=== PATIENT | female | born 1960 | race Caucasian/White ===

== ENCOUNTER 2020-07-31 16:22 | Outpatient (REF) | payer OTHER, SELFPAY ==
--- NOTE | 2020-07-31 | MM_ITS ---
EXAMINATION: MM SCREENING DIGITAL BREAST TOMOSYNTHESIS, BILATERAL CLINICAL INFORMATION: Screening. Asymptomatic. The lifetime risk of breast cancer based on the Tyrer-Cuzick Model is 8%. COMPARISON: Mammography: 12/26/2018, 12/19/2017, 06/07/2017, 11/29/2016 TECHNIQUE: Digital breast tomosynthesis is performed in both the craniocaudal and mediolateral oblique views along with computer-aided detection (CAD). Synthesized 2D images are generated from the tomosynthesis. FINDINGS: There are scattered areas of fibroglandular density (ACR BI-RADS breast composition Category b). There are no significant masses, abnormal calcifications, or other abnormalities. Parenchymal pattern is similar to prior studies. No developing density. No significant changes. MM/MM tomosynthesis screening BI IMPRESSION: No mammographic evidence of malignancy. ASSESSMENT: BI-RADS 1: Negative RECOMMENDATION: Routine annual mammography screening. This patient's information was entered into a reminder system with a target due date for their next mammogram.
== END 2020-07-31 16:23 | disposition home or self-care (01) ==
LOC: HO.MAMMO 16:22
PROVIDERS: PCP Internal Medicine; Visit Provider Internal Medicine
DX: Z12.31 Encounter for screening mammogram for malignant neoplasm of breast (principal)
CPT/HCPCS: 77063; 77067

== ENCOUNTER 2021-08-13 12:03 | Outpatient (REF) | payer OTHER, SELFPAY ==
--- NOTE | ~2021-08-13 | MM_ITS ---
EXAMINATION: MM SCREENING DIGITAL BREAST TOMOSYNTHESIS, BILATERAL CLINICAL INFORMATION: Screening. Asymptomatic. The lifetime risk of breast cancer based on the Tyrer-Cuzick Model is 5%. COMPARISON: Mammography: 07/31/2020, 12/26/2018, 12/19/2017 TECHNIQUE: Digital breast tomosynthesis is performed in both the craniocaudal and mediolateral oblique views along with computer-aided detection (CAD). Synthesized 2D images are generated from the tomosynthesis. FINDINGS: There are scattered areas of fibroglandular density (ACR BI-RADS breast composition Category b). There are no significant masses, abnormal calcifications, or other abnormalities. MM/MM tomosynthesis screening BI IMPRESSION: No mammographic evidence of malignancy. ASSESSMENT: BI-RADS 1: Negative RECOMMENDATION: Routine annual mammography screening. This patient's information was entered into a reminder system with a target due date for their next mammogram.
== END 2021-08-13 12:04 | disposition home or self-care (01) ==
LOC: HO.MAMMO 12:03
PROVIDERS: Visit Provider Internal Medicine
DX: Z12.31 Encounter for screening mammogram for malignant neoplasm of breast (principal)
CPT/HCPCS: 77063; 77067

== ENCOUNTER 2022-08-17 14:40 | Outpatient (REF) | payer OTHER, SELFPAY ==
--- NOTE | ~2022-08-17 | MM_ITS ---
EXAMINATION: MM SCREENING DIGITAL BREAST TOMOSYNTHESIS, BILATERAL CLINICAL INFORMATION: Screening. Asymptomatic. The lifetime risk of breast cancer based on the Tyrer-Cuzick Model is 7%. COMPARISON: Mammography: 08/13/2021, 07/31/2020, 12/26/2018 TECHNIQUE: Digital breast tomosynthesis is performed in both the craniocaudal and mediolateral oblique views along with computer-aided detection (CAD). Synthesized 2D images are generated from the tomosynthesis. FINDINGS: There are scattered areas of fibroglandular density (ACR BI-RADS breast composition Category b). Parenchymal pattern is similar to prior studies. There is no significant mass or architectural abnormality or developing density. Small smooth nodular asymmetry central left breast on MLO tomography is similar to prior exams. Neither breast shows abnormal calcifications. The axilla and skin contours are unremarkable. No significant changes. MM/MM tomosynthesis screening BI IMPRESSION: No mammographic evidence of malignancy. ASSESSMENT: BI-RADS 2: Benign RECOMMENDATION: Routine annual mammography screening. This patient's information was entered into a reminder system with a target due date for their next mammogram.
== END 2022-08-17 14:41 | disposition home or self-care (01) ==
LOC: HO.MAMMO 14:40
PROVIDERS: Visit Provider Internal Medicine
DX: Z12.31 Encounter for screening mammogram for malignant neoplasm of breast (principal)
CPT/HCPCS: 77063; 77067

== ENCOUNTER 2023-08-23 14:58 | Outpatient (REF) | payer OTHER, SELFPAY | END 2023-08-23 14:59 | disposition home or self-care (01) | LOC: HO.MAMMO 14:58 | PROVIDERS: PCP Student in an Organized Health Care Education/Training Program; Visit Provider Internal Medicine | DX: Z12.31 Encounter for screening mammogram for malignant neoplasm of breast (principal) | CPT/HCPCS: 77063; 77067 ==

== ENCOUNTER → 2023-08-23 15:15 | Outpatient (BNV) | payer OTHER, SELFPAY | PROVIDERS: PCP Student in an Organized Health Care Education/Training Program; Visit Provider Radiology Diagnostic Radiology | DX: Z12.31 Encounter for screening mammogram for malignant neoplasm of breast (principal) | CPT/HCPCS: 77063; 77067 ==

== ENCOUNTER 2024-09-23 13:31 | Outpatient (REF) | payer OTHER, SELFPAY ==
--- OUTSIDE RECORDS SUMMARY | 2024-09-23 16:25 | XMS_ITS | Data Portability ---
Author Organization [facility], Main Office Address [address] [place] [address] Care Team Providers Care Bar Tender Name Role Phone DESILEANYA, DOMINGO Roast Master ATUL DORADO Garage Manager [facility] General Surgeon DEYSI MENDEZ Tile Molder [phone] DAVID ENRIQUEZ Neurologist ELENA OLIVARES Referring Provider [phone] [facility] (KARI KIM) Orthopedic Surgeon FRANCISCA OCHOA Log Buncher NELSY BUSTAMANTE Roast Master [phone] SUHAS PRICE Primary Care Provider Assessment Encounter Date Assessment Date Assessment LastModified by Organization Details LastModified Time 01/04/2023 01/04/2023 This service was provided using telemedicine. Patient consented to video & audio visit Patient was located in the [facility]. Provider was located in the office. No other persons participated in the telemedicine visit except for the patient unless otherwise indicated here. {{}} Total time of visit was 15 minutes. [email or web address] Not available 01/04/2023 15:44:10 02/22/2024 02/22/2024 Discussed with patient the signs/symptoms warranted for a return to office visit and/or an ER visit. Patient understood and agreed with the plan. Not available 02/22/2024 14:33:21 Plan of Treatment Reminders Order Date Submit Date Provider Last Modified By Organization Details Last Modified Time Details Appointments PE EST 03/27/ 2025 01:45P M SUHAS PRICE MD Not available Not available Not available Lab BMP, serum or plasma 2022 023 [facility], [address], [address], [place], [address], 12/02/2022 17:05:54 CBC w/ auto diff 2022 023 [facility], [address], [address], [place], [address], 12/02/2022 17:04:06 ALT (shanelle vela), serum or plasma 2023 024 [facility], [address], [place], [address], 02/04/2024 08:06:52 lipid panel, serum 2023 024 [email or web address] [facility], [address], [place], [address], 11/28/2023 10:50:26 TSH + free T4, serum 2023 024 [facility], [address], [place], [address], 02/04/2024 08:06:48 CBC w/ auto diff 2023 024 [facility], [address], [place], [address], 02/04/2024 08:06:50 BMP, serum or plasma 2023 024 [facility], [address], [place], [address], 02/04/2024 08:06:50 HIV 1 + 2 RNA panel, NGOC+pr obe, serum or plasma 2023 024 [facility], [address], [place], [address], 02/04/2024 08:06:52 BMP, serum or plasma 2023 024 [facility], [address] [facility], [facility] [address], [place], [address], 02/13/2024 06:08:26 CBC w/ auto diff 2023 024 [facility], [address], [facility] [address], [place], [address], 02/13/2024 06:08:26 Referral None record ed. Procedures None record ed. Surgeries None record ed. Imaging CT, abdome n + pelvis , w/ contra st - RLQ pain, rule out divert iculit is, coliti s, mass/ with iv and oral contra st [id number] [facility], [address] [place], [address], 12/14/2022 14:05:57 CT, abdome n + pelvis , w/o contra st 2023 024 [facility] [place], [facility], [facility] [address], [place], [address], 02/27/2024 08:58:16 US, abdome n - right sided abdomi nal pain. CT scan reveal s kidney stones in the right kidney - but urolog y determ ined not the cause of right abdomi nal pain [email or web address] [place] [address] (Radiology), [address] [place], [address], 02/26/2024 11:35:40 XR, hip, unilat eral, 2 or 3 view - right hip/ab domina l pain [address] [facility], [address] [facility], [place], [address], 02/22/2024 15:31:07 Medication Orders None record ed. Patient TargetsNo targets recorded. Patient Instructions Encounter Date Encounter Id Patient Instructions Last Modified By Organization Details Last Modified Time 11/20/2023 [id number] medical record request* [email or web address] Not available 11/20/2023 15:36:34 constipation: care instructions Not available 11/20/2023 13:34:37 HIV testing: car e instructions Not available 11/20/2023 13:23:15 02/12/2024 [id number] Follow up as needed. [email or web address] Not available 02/12/2024 10:01:07 Reason for Referral None Reported. Results Created Date Observation Date Name Description Value Unit Range Abnormal Flag Note LastModifiedBy Organization Detail LastModifiedTime 12/03/1912/02/2022 COMPL ETE CBC WITH DIFF WBC 6.5 K/mm3 (4.0-1 1.0) Not Available [facility] [address] [place], [address], 12/02/2022 17:04:05 12/03/19 23 12/02/2022 COMPL ETE CBC WITH DIFF RBC 4.63 M/mm3 (4.20- 5.40) Not Available [facility] [address] [place], [address], 12/02/2022 17:04:05 12/03/19 23 12/02/2022 COMPL ETE CBC WITH DIFF HGB 13.9 gm/dL (11.7- 15.5) Not Available [facility] [address] [place], [address], 12/02/2022 17:04:05 12/03/19 23 12/02/2022 COMPL ETE CBC WITH DIFF HCT 42.7 % (35.7- 45.8) Not Available [facility] [address] [place], [address], 12/02/2022 17:04:05 12/03/1912/02/2022 COMPL ETE CBC WITH DIFF MCV 92.2 fL (80.0- 100.0) Not Available [facility] [address] [place], [address], 12/02/2022 17:04:05 12/03/19 23 12/02/2022 COMPL ETE CBC WITH DIFF MCH 30.0 pg (27.0- 34.0) Not Available [facility] [address] [place], [address], 12/02/2022 17:04:05 12/03/19 23 12/02/2022 COMPL ETE CBC WITH DIFF MCHC 32.6 g/dL (33.0- 37.0) low Not Available [facility] [address] [place], [address], 12/02/2022 17:04:05 12/03/19 23 12/02/2022 COMPL ETE CBC WITH DIFF plt 297 K/mm3 (150-4 60) Not Available [facility] [address] [place], [address], 12/02/2022 17:04:05 12/03/19 23 12/02/2022 COMPL ETE CBC WITH DIFF RDW-SD 44.5 fL (<47.0 ) Not Available [facility] [address] [place], [address], 12/02/2022 17:04:05 12/03/19 23 12/02/2022 COMPL ETE CBC WITH DIFF MPV 9.6 fL (9.4-1 2.4) Not Available [facility] [address] [place], [address], 12/02/2022 17:04:05 12/03/19 23 12/02/2022 COMPL ETE CBC WITH DIFF automated NRBC 0.0 #/100 _WBC' s Not Available [facility] [address] [place], [address], 12/02/2022 17:04:05 12/03/19 23 12/02/2022 COMPL ETE CBC WITH DIFF abs. NRBC 0.0 K/mm3 Not Available [facility] [address] [place], [address], 12/02/2022 17:04:05 12/03/19 23 12/02/2022 COMPL ETE CBC WITH DIFF neut # 3.8 K/mm3 (1.3-7 .0) Not Available [facility] [address] [place], [address], 12/02/2022 17:04:05 12/03/19 23 12/02/2022 COMPL ETE CBC WITH DIFF lymph # 2.0 K/mm3 (0.8-3 .1) Not Available [facility] [address] [place], [address], 12/02/2022 17:04:05 12/03/19 23 12/02/2022 COMPL ETE CBC WITH DIFF mono# 0.4 K/mm3 (0.4-0 .9) Not Available [facility] [address] [place], [address], 12/02/2022 17:04:05 12/03/19 23 12/02/2022 COMPL ETE CBC WITH DIFF eo # 0.2 K/mm3 (0.0-0 .4) Not Available [facility] [address] [place], [address], 12/02/2022 17:04:05 12/03/19 23 12/02/2022 COMPL ETE CBC WITH DIFF baso # 0.1 K/mm3 (0.0-0 .1) Not Available [facility] [address] [place], [address], 12/02/2022 17:04:05 12/03/19 23 12/02/2022 COMPL ETE CBC WITH DIFF abs. imm gran 0.0 K/mm3 Not Available [facility] [address] [place], [address], 12/02/2022 17:04:05 12/03/19 23 12/02/2022 COMPL ETE CBC WITH DIFF neut 58.4 % (44-76 ) Not Available [facility] [address] [place], [address], 12/02/2022 17:04:05 12/03/19 23 12/02/2022 COMPL ETE CBC WITH DIFF lymph 31.3 % (15-43 ) Not Available [facility] [address] [place], [address], 12/02/2022 17:04:05 12/03/19 23 12/02/2022 COMPL ETE CBC WITH DIFF monocyte 6.3 % (4.5-1 0.5) Not Available [facility] [address] [place], [address], 12/02/2022 17:04:05 12/03/19 23 12/02/2022 COMPL ETE CBC WITH DIFF eo 2.6 % (0-6) Not Available [facility] [address] [place], [address], 12/02/2022 17:04:05 12/03/19 23 12/02/2022 COMPL ETE CBC WITH DIFF baso 1.1 % (0-2) Not Available [facility] [address] [place], [address], 12/02/2022 17:04:05 12/03/19 23 12/02/2022 COMPL ETE CBC WITH DIFF imm gran 0.3 % Not Available [facility] [address] [place], [address], 12/02/2022 17:04:05 12/03/19 23 12/02/2022 BASIC METAB OLIC PANEL glucose 86 mg/dL (70-99 ) Not Available [facility] [address] [place], [address], 12/02/2022 17:05:54 12/03/19 23 12/02/2022 BASIC METAB OLIC PANEL BUN 9 mg/dL (8-23) Not Available [facility] [address] [place], [address], 12/02/2022 17:05:54 12/03/19 23 12/02/2022 BASIC METAB OLIC PANEL creatinine 0.6 mg/dL (0.5-1 .0) Not Available [facility] [address] [place], [address], 12/02/2022 17:05:54 12/03/19 23 12/02/2022 BASIC METAB OLIC PANEL sodium 141 mmol/ L (133-1 45) Not Available [facility] [address] [place], [address], 12/02/2022 17:05:54 12/03/19 23 12/02/2022 BASIC METAB OLIC PANEL potassium 4.3 mmol/ L (3.6-5 .2) Not Available [facility] [address] [place], [address], 12/02/2022 17:05:54 12/03/19 23 12/02/2022 BASIC METAB OLIC PANEL chloride 104 mmol/ L (98-10 7) Not Available [facility] [address] [place], [address], 12/02/2022 17:05:54 12/03/19 23 12/02/2022 BASIC METAB OLIC PANEL bicarbonate 27 mmol/ L (22-29 ) Not Available [facility] [address] [place], [address], 12/02/2022 17:05:54 12/03/19 23 12/02/2022 BASIC METAB OLIC PANEL anion gap 10 (4-17) Not Available [facility] [address] [place], [address], 12/02/2022 17:05:54 12/03/19 23 12/02/2022 BASIC METAB OLIC PANEL calcium 10.0 mg/dL (8.6-1 0.5) Not Available [facility] [address] [place], [address], 12/02/2022 17:05:54 12/03/19 23 12/02/2022 BASIC METAB OLIC PANEL estimated GFR creatinine 104 mL/mi n/1.7 3_M2 Creat inine based estim ated glome rular filtr ation (eGFR ) in adult s is calcu lated using the Natio nal Kidne y Found ation recom kay d 2020 CKD-E PI equat ion. Estim ates GFR from serum creat inine , age and sex. Not Available [facility] [address], [place], [address], 12/02/2022 17:05:54 02/02/20 24 02/03/2024 TSH+F REE T4 TSH 0.748 uIU/m L 0.450- 4.500 Not Available [facility] ([facility]) [address] [place], [address], 02/04/2024 08:06:48 02/02/20 24 02/03/2024 TSH+F REE T4 T4,free(dire ct) 1.40 NG/dL 0.82-1 .77 Not Available [facility] ([facility]) [address] [place], [address], 02/04/2024 08:06:48 02/02/20 24 02/03/2024 CBC WITH DIFFE RENTI AL/PL ATELE T WBC 7.7 x10e3 /uL 3.4-10 .8 Not Available [facility] ([facility]) [address] [place], [address], 02/04/2024 08:06:50 02/02/20 24 02/03/2024 CBC WITH DIFFE RENTI AL/PL ATELE T RBC 4.82 x10e6 /uL 3.77-5 .28 Not Available [facility] ([facility]) [address] [place], [address], 02/04/2024 08:06:50 02/02/20 24 02/03/2024 CBC WITH DIFFE RENTI AL/PL ATELE T hemoglobin 14.5 g/dL 11.1-1 5.9 Not Available [facility] ([facility]) [address] [facility] [place], [address], 02/04/2024 08:06:50 02/02/20 24 02/03/2024 CBC WITH DIFFE RENTI AL/PL ATELE T hematocrit 43.5 % 34.0-4 6.6 Not Available [facility] ([facility]) [address] [facility], [place], [address], 02/04/2024 08:06:50 02/02/20 24 02/03/2024 CBC WITH DIFFE RENTI AL/PL ATELE T MCV 90 fL 79-97 Not Available [facility] ([facility]) [address] [place], [address], 02/04/2024 08:06:50 02/02/20 24 02/03/2024 CBC WITH DIFFE RENTI AL/PL ATELE T MCH 30.1 pg 26.6-3 3.0 Not Available [facility] ([facility]) [address] [facility], [place], [address], 02/04/2024 08:06:50 02/02/2002/03/2024 CBC WITH DIFFE RENTI AL/PL ATELE T MCHC 33.3 g/dL 31.5-3 5.7 Not Available [facility] ([facility]) [address] [place], [address], 02/04/2024 08:06:50 02/02/20 24 02/03/2024 CBC WITH DIFFE RENTI AL/PL ATELE T RDW 12.7 % 11.7-1 5.4 Not Available [facility] ([facility]) [address] [place], [address], 02/04/2024 08:06:50 02/02/20 24 02/03/2024 CBC WITH DIFFE RENTI AL/PL ATELE T platelets 280 x10e3 /uL 150-45 0 Not Available [facility] ([facility]) [address] [place], [address], 02/04/2024 08:06:50 02/02/20 24 02/03/2024 CBC WITH DIFFE RENTI AL/PL ATELE T neutrophils 72 % not estab. Not Available [facility] ([facility]) [address] [facility], [place], [address], 02/04/2024 08:06:50 02/02/20 24 02/03/2024 CBC WITH DIFFE RENTI AL/PL ATELE T lymphs 21 % not estab. Not Available [facility] ([facility]) [address] [facility], [place], [address], 02/04/2024 08:06:50 02/02/20 24 02/03/2024 CBC WITH DIFFE RENTI AL/PL ATELE T monocytes 5 % not estab. Not Available [facility] ([facility]) [address] [facility], [place], [address], 02/04/2024 08:06:50 02/02/20 24 02/03/2024 CBC WITH DIFFE RENTI AL/PL ATELE T eos 1 % not estab. Not Available [facility] ([facility]) [address] [facility], [place], [address], 02/04/2024 08:06:50 02/02/20 24 02/03/2024 CBC WITH DIFFE RENTI AL/PL ATELE T basos 1 % not estab. Not Available [facility] ([facility]) [address] [facility], [place], [address], 02/04/2024 08:06:50 02/02/20 24 02/03/2024 CBC WITH DIFFE RENTI AL/PL ATELE T immature cells ZIPPER REPAIRER Not Available [facility] ([facility]) [address] [facility], [place], [address], 02/04/2024 08:06:50 02/02/20 24 02/03/2024 CBC WITH DIFFE RENTI AL/PL ATELE T neutrophils (absolute) 5.6 x10e3 /uL 1.4-7. 0 Not Available [facility] ([facility]) [address] [place], [address], 02/04/2024 08:06:50 02/02/20 24 02/03/2024 CBC WITH DIFFE RENTI AL/PL ATELE T lymphs (absolute) 1.6 x10e3 /uL 0.7-3. 1 Not Available [facility] ([facility]) [address] [place], [address], 02/04/2024 08:06:50 02/02/20 24 02/03/2024 CBC WITH DIFFE RENTI AL/PL ATELE T monocytes(ab solute) 0.4 x10e3 /uL 0.1-0. 9 Not Available [facility] ([facility]) [address] [place], [address], 02/04/2024 08:06:50 02/02/20 24 02/03/2024 CBC WITH DIFFE RENTI AL/PL ATELE T eos (absolute) 0.1 x10e3 /uL 0.0-0. 4 Not Available [facility] ([facility]) [address] [place], [address], 02/04/2024 08:06:50 02/02/20 24 02/03/2024 CBC WITH DIFFE RENTI AL/PL ATELE T baso (absolute) 0.1 x10e3 /uL 0.0-0. 2 Not Available [facility] ([facility]) [address] [place], [address], 02/04/2024 08:06:50 02/02/20 24 02/03/2024 CBC WITH DIFFE RENTI AL/PL ATELE T immature granulocytes 0 % not estab. Not Available [facility] ([facility]) [address] [place], [address], 02/04/2024 08:06:50 02/02/20 24 02/03/2024 CBC WITH DIFFE RENTI AL/PL ATELE T immature grans (abs) 0.0 x10e3 /uL 0.0-0. 1 Not Available [facility] ([facility]) [address] [facility], [place], [address], 02/04/2024 08:06:50 02/02/20 24 02/03/2024 CBC WITH DIFFE RENTI AL/PL ATELE T NRBC ZIPPER REPAIRER Not Available [facility] ([facility]) [address] [facility], [place], [address], 02/04/2024 08:06:50 02/02/20 24 02/03/2024 CBC WITH DIFFE RENTI AL/PL ATELE T hematology comments: ZIPPER REPAIRER Not Available [facility] ([facility]) [address] [facility], [place], [address], 02/04/2024 08:06:50 02/02/20 24 02/03/2024 BASIC METAB OLIC PANEL (8) glucose 89 mg/dL 70-99 Not Available [facility] ([facility]) [address] [place], [address], 02/04/2024 08:06:50 02/02/20 24 02/03/2024 BASIC METAB OLIC PANEL (8) BUN 8 mg/dL 8-27 Not Available [facility] ([facility]) [address] [place], [address], 02/04/2024 08:06:50 02/02/20 24 02/03/2024 BASIC METAB OLIC PANEL (8) creatinine 0.56 mg/dL 0.57-1 .00 below low normal Not Available [facility] ([facility]) [address] [place], [address], 02/04/2024 08:06:50 02/02/20 24 02/03/2024 BASIC METAB OLIC PANEL (8) eGFR 103 mL/mi n/1.7 3 >59 Not Available [facility] ([facility]) [address] [facility] [place], [address], 02/04/2024 08:06:50 02/02/20 24 02/03/2024 BASIC METAB OLIC PANEL (8) BUN/creatini ne ratio 14 12-28 Not Available [facility] ([facility]) [address] [facility] [place], [address], 02/04/2024 08:06:50 02/02/20 24 02/03/2024 BASIC METAB OLIC PANEL (8) sodium 140 mmol/ L 134-14 4 Not Available [facility] ([facility]) [address] [facility] [place], [address], 02/04/2024 08:06:50 02/02/20 24 02/03/2024 BASIC METAB OLIC PANEL (8) potassium 4.4 mmol/ L 3.5-5. 2 Not Available [facility] ([facility]) [address] [facility] [place], [address], 02/04/2024 08:06:50 02/02/20 24 02/03/2024 BASIC METAB OLIC PANEL (8) chloride 104 mmol/ L 96-106 Not Available [facility] ([facility]) [address] [facility] [place], [address], 02/04/2024 08:06:50 02/02/20 24 02/03/2024 BASIC METAB OLIC PANEL (8) carbon dioxide, total 25 mmol/ L 20-29 Not Available [facility] ([facility]) [address] [facility] [place], [address], 02/04/2024 08:06:50 02/02/20 24 02/03/2024 BASIC METAB OLIC PANEL (8) calcium 9.9 mg/dL 8.7-10 .3 Not Available [facility] ([facility]) [address] [facility] [place], [address], 02/04/2024 08:06:50 02/02/20 24 02/03/2024 LIPID PANEL cholesterol, total 221 mg/dL 100-19 9 above high normal Not Available [facility] ([facility]) [address] [place], [address], 02/04/2024 08:06:51 02/02/20 24 02/03/2024 LIPID PANEL triglyceride s 144 mg/dL 0-149 Not Available [facility] ([facility]) [address] [place], [address], 02/04/2024 08:06:51 02/02/20 24 02/03/2024 LIPID PANEL HDL cholesterol 55 mg/dL >39 Not Available [facility] ([facility]) [address] [place], [address], 02/04/2024 08:06:51 02/02/20 24 02/03/2024 LIPID PANEL VLDL cholesterol luisa 26 mg/dL 5-40 Not Available [facility] ([facility]) [address] [place], [address], 02/04/2024 08:06:51 02/02/20 24 02/03/2024 LIPID PANEL LDL chol calc ([facility]) 140 mg/dL 0-99 above high normal Not Available [facility] ([facility]) [address] [place], [address], 02/04/2024 08:06:51 02/02/20 24 02/03/2024 LIPID PANEL comment: ZIPPER REPAIRER Not Available [facility] ([facility]) [address] [place], [address], 02/04/2024 08:06:51 02/02/20 24 02/03/2024 HIV-1 /HIV- 2 QUALI TATIV E RNA HIV-1 RNA NON REACTI VE non reacti ve Not Available [facility] ([facility]) [address] [place], [address], 02/04/2024 08:06:52 02/02/20 24 02/03/2024 HIV-1 /HIV- 2 QUALI TATIV E RNA HIV-2 RNA NON REACTI VE non reacti ve Not Available [facility] ([facility]) [address] [facility], [place], [address], 02/04/2024 08:06:52 02/02/20 24 02/03/2024 ALT (SGPT ) ALT (SGPT) 21 IU/L 0-32 Not Available [facility] ([facility]) [address] [facility], [place], [address], 02/04/2024 08:06:52 02/12/20 24 02/12/2024 CBC WITH DIFFE RENTI AL/PL ATELE T WBC 6.0 x10e3 /uL 3.4-10 .8 Not Available [facility] ([facility]) [address] [facility], [place], [address], 02/13/2024 06:08:26 02/12/20 24 02/12/2024 CBC WITH DIFFE RENTI AL/PL ATELE T RBC 4.74 x10e6 /uL 3.77-5 .28 Not Available [facility] ([facility]) [address] [place], [address], 02/13/2024 06:08:26 02/12/20 24 02/12/2024 CBC WITH DIFFE RENTI AL/PL ATELE T hemoglobin 13.9 g/dL 11.1-1 5.9 Not Available [facility] ([facility]) [address] [place], [address], 02/13/2024 06:08:26 02/12/20 24 02/12/2024 CBC WITH DIFFE RENTI AL/PL ATELE T hematocrit 43.8 % 34.0-4 6.6 Not Available [facility] ([facility]) [address] [place], [address], 02/13/2024 06:08:26 02/12/20 24 02/12/2024 CBC WITH DIFFE RENTI AL/PL ATELE T MCV 92 fL 79-97 Not Available [facility] ([facility]) [address] [facility], [place], [address], 02/13/2024 06:08:26 02/12/20 24 02/12/2024 CBC WITH DIFFE RENTI AL/PL ATELE T MCH 29.3 pg 26.6-3 3.0 Not Available [facility] ([facility]) [address] [facility], [place], [address], 02/13/2024 06:08:26 02/12/20 24 02/12/2024 CBC WITH DIFFE RENTI AL/PL ATELE T MCHC 31.7 g/dL 31.5-3 5.7 Not Available [facility] ([facility]) [address] [facility], [place], [address], 02/13/2024 06:08:26 02/12/20 24 02/12/2024 CBC WITH DIFFE RENTI AL/PL ATELE T RDW 12.8 % 11.7-1 5.4 Not Available [facility] ([facility]) [address] [facility], [place], [address], 02/13/2024 06:08:26 02/12/20 24 02/12/2024 CBC WITH DIFFE RENTI AL/PL ATELE T platelets 293 x10e3 /uL 150-45 0 Not Available [facility] ([facility]) [address] [facility], [place], [address], 02/13/2024 06:08:26 02/12/20 24 02/12/2024 CBC WITH DIFFE RENTI AL/PL ATELE T neutrophils 60 % not estab. Not Available [facility] ([facility]) [address] [facility], [place], [address], 02/13/2024 06:08:26 02/12/20 24 02/12/2024 CBC WITH DIFFE RENTI AL/PL ATELE T lymphs 31 % not estab. Not Available [facility] ([facility]) [address] [facility], [place], [address], 02/13/2024 06:08:26 02/12/20 24 02/12/2024 CBC WITH DIFFE RENTI AL/PL ATELE T monocytes 6 % not estab. Not Available [facility] ([facility]) [address] [facility], [place], [address], 02/13/2024 06:08:26 02/12/20 24 02/12/2024 CBC WITH DIFFE RENTI AL/PL ATELE T eos 2 % not estab. Not Available [facility] ([facility]) [address] [facility], [place], [address], 02/13/2024 06:08:26 02/12/20 24 02/12/2024 CBC WITH DIFFE RENTI AL/PL ATELE T basos 1 % not estab. Not Available [facility] ([facility]) [address] [facility], [place], [address], 02/13/2024 06:08:26 02/12/20 24 02/12/2024 CBC WITH DIFFE RENTI AL/PL ATELE T immature cells ZIPPER REPAIRER Not Available [facility] ([facility]) [address] [facility], [place], [address], 02/13/2024 06:08:26 02/12/20 24 02/12/2024 CBC WITH DIFFE RENTI AL/PL ATELE T neutrophils (absolute) 3.7 x10e3 /uL 1.4-7. 0 Not Available [facility] ([facility]) [address] [facility], [place], [address], 02/13/2024 06:08:26 02/12/20 24 02/12/2024 CBC WITH DIFFE RENTI AL/PL ATELE T lymphs (absolute) 1.8 x10e3 /uL 0.7-3. 1 Not Available [facility] ([facility]) [address] [facility], [place], [address], 02/13/2024 06:08:26 02/12/20 24 02/12/2024 CBC WITH DIFFE RENTI AL/PL ATELE T monocytes(ab solute) 0.3 x10e3 /uL 0.1-0. 9 Not Available [facility] ([facility]) [address] [facility], [place], [address], 02/13/2024 06:08:26 02/12/20 24 02/12/2024 CBC WITH DIFFE RENTI AL/PL ATELE T eos (absolute) 0.1 x10e3 /uL 0.0-0. 4 Not Available [facility] ([facility]) [address] [facility], [place], [address], 02/13/2024 06:08:26 02/12/20 24 02/12/2024 CBC WITH DIFFE RENTI AL/PL ATELE T baso (absolute) 0.1 x10e3 /uL 0.0-0. 2 Not Available [facility] ([facility]) [address] [facility], [place], [address], 02/13/2024 06:08:26 02/12/20 24 02/12/2024 CBC WITH DIFFE RENTI AL/PL ATELE T immature granulocytes 0 % not estab. Not Available [facility] ([facility]) [address] [place], [address], 02/13/2024 06:08:26 02/12/20 24 02/12/2024 CBC WITH DIFFE RENTI AL/PL ATELE T immature grans (abs) 0.0 x10e3 /uL 0.0-0. 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 Not Available [facility] ([facility]) [address] [facility], [place], [address], 02/13/2024 06:08:26 02/12/20 24 02/12/2024 BASIC METAB OLIC PANEL (8) glucose 92 mg/dL 70-99 Not Available [facility] ([facility]) [address] [facility], [place], [address], 02/13/2024 06:08:26 02/12/20 24 02/12/2024 BASIC METAB OLIC PANEL (8) BUN 10 mg/dL 8-27 Not Available [facility] ([facility]) [address] [place], [address], 02/13/2024 06:08:26 02/12/20 24 02/12/2024 BASIC METAB OLIC PANEL (8) creatinine 0.59 mg/dL 0.57-1 .00 Not Available [facility] ([facility]) [address] [place], [address], 02/13/2024 06:08:26 02/12/20 24 02/12/2024 BASIC METAB OLIC PANEL (8) eGFR 102 mL/mi n/1.7 3 >59 Not Available [facility] ([facility]) [address] [place], [address], 02/13/2024 06:08:26 02/12/20 24 02/12/2024 BASIC METAB OLIC PANEL (8) BUN/creatini ne ratio 17 12-28 Not Available [facility] ([facility]) [address] [facility], [place], [address], 02/13/2024 06:08:26 02/12/20 24 02/12/2024 BASIC METAB OLIC PANEL (8) sodium 141 mmol/ L 134-14 4 Not Available [facility] ([facility]) [address] [facility], [place], [address], 02/13/2024 06:08:26 02/12/20 24 02/12/2024 BASIC METAB OLIC PANEL (8) potassium 4.3 mmol/ L 3.5-5. 2 Not Available [facility] ([facility]) [address] [facility], [place], [address], 02/13/2024 06:08:26 02/12/20 24 02/12/2024 BASIC METAB OLIC PANEL (8) chloride 106 mmol/ L 96-106 Not Available [facility] ([facility]) [address] [facility], [place], [address], 02/13/2024 06:08:26 02/12/20 24 02/12/2024 BASIC METAB OLIC PANEL (8) carbon dioxide, total 23 mmol/ L 20-29 Not Available [facility] ([facility]) [address] [facility], [place], [address], 02/13/2024 06:08:26 02/12/20 24 02/12/2024 BASIC METAB OLIC PANEL (8) calcium 9.7 mg/dL 8.7-10 .3 Not Available [facility] ([facility]) [address] [place], [address], 02/13/2024 06:08:26 12/06/19 23 09/26/2022 CT, abdom en + pelvi s, w/o contr ast No observ ation record ed. [email or web address] Not Available 12/07/2022 11:38:05 12/13/19 23 12/12/2022 CT ABD/p kamilla w/ IV contr ast only CT Abd/Pe lvis W/ IV Contra st Only HISTOR Y: Right lower quadra nt pain. TECHNI QUE: Spiral CT throug h the abdome n and pelvis with IV contra st format sven in 3 planes . 100 cc of Omnipa que 300 was admini stered intrav enousl y. This study was perfor med with oral contra st. Weight -based protoc ol using automa tic tube modula tion was used to optimi ze exposu re parame ters. CTDIvo l Body: 10.70 mGy, DLP Body: 547 mGy*cm . COMPAR LUDY: CT from 005 FINDIN GS: Adult Live In Caregiver View Findin gs, Lines and Tubes: None. Visual ized Chest: Lung bases are clear. No pleura l effusi on. The heart is normal in size. No perica rdial effusi on. Diaphr agm: Normal . Liver: Normal . Gallbl adder: No CT eviden ce of gallbl adder pathol ogy. Bile ducts: No biliar y ductal dilati on. Spleen : Normal . Pancre as: Normal . Adrena l glands : No right adrena l gland nodule . A 6 mm left adrena l nodule (221:3 4) is unchan ged from 2004. Kidney s and ureter s: No hydron ephros is, stones , or suspic ious masses . Simple appear ing renal cysts are noted, requir ing no dedica sven follow up. 1.5 cm right lower pole calyce al divert iculum with renal stones measur ing up to 0.9 cm. 0.4 cm nonobs tructi ng renal stone in the lower pole of the right kidney . Bladde r: Normal . Reprod uctive organs : Probab le leiomy omas in the uterin e fundus . Ovarie s are normal in size. Stomac h, small bowel, and large bowel: Enteri c contra st is seen as far distal ly as the rectum . First and second portio n of the duoden um appear normal . Proxim al third portio n of the duoden um is focall y dilate d to 3.5 cm with small linear radiod ense materi al or curvil inear enhanc ement along its coal passer ior wall (601:5 1). There is short segmen t narrow ing/un derdis tentio n of the third and fourth portio ns of the duoden um approx imatel y 3.3 cm in length (22:46 ). No surrou nding inflam matory strand ing. No free air. No eviden ce of bowel obstru ction. Mild divert iculos is throug hout the colon. Fluid attenu ation materi al within the stomac h.Clyo n is partia lly opacif ied by contra st withou t obstru ction. Append ix: Normal . Perito neum and retrop eriton eum: No ascite s or pneumo perito neum. No omenta l or mesent bradley lesion s. Lymph nodes: No enlarg ed lymph nodes. Blood vessel s: Minima l vascul ar calcif icatio ns. No aneury sm. No eviden ce of venous thromb osis. Abdomi nal and pelvic wall: Unrema rkable . Bones: No acute abnorm ality. Spine degene rative change s. IMPRES DERICK: No defini te acute infect ious or inflam matory proces s in the abdome n and pelvis . Specif ically no eviden ce of acute append icitis , divert iculit is, or coliti s. Proxim al third portio n of the duoden um is focall y dilate d measur ing 3.5 cm with some curvil inear hypera ttenua ting materi al along its coal passer ior lumen probab ly repres enting enteri c contra st. Immedi ately distal to this dilati on is short segmen t narrow ing versus underd istent ion of the third/ fourth portio n of the duoden um. No surrou nding inflam matory strand ing is appare nt. No free air. While appear ance of the duoden um may be physio logic, please correl ate with patien t's sympto ms and consid er furthe r evalua tion with upper endosc opy and upper GI fluoro scopic exam to assess for any areas of duoden al narrow ing or strict ure. A critic al result geronimo boateng (Cristhian eddy) has been commun icated via the [employer] able Findin gs system on 12/13/19 5:24 PM, Geronimo boateng ID [id number] 1. I have person ally review ed the images and I agree with this report . WSN: [id number] Orderi ng Physic deepa: Nate nixon MD, Antonia E Dictat ed By: Quique redding MD, Marcelino Dean Dictat ed Date/T will: 5:25 pm Review ed By: Tony gore MD, Leonard Black Signed By: Leonrad Alfaro MD Signed Date/T will: 5:30 pm Transc ribed By: EDGARD Transc ribed Date/T will: 4:05 pm Patien t Class: Outpat ient [email or web address] [facility] (Outpt Imaging) [address], [place], [address], 12/13/2022 10:25:52 09/06/20 23 08/23/2023 MAMMO , scree pretty, digit al, bilat eral No observ ation record ed. [facility] [address] [place], [place], [address], 09/06/2023 10:29:22 11/20/19 24 09/28/2023 bone densi ty No observ ation record ed. [email or web address] Not Available 2023 10:01:37 02/12/20 24 02/12/2024 CT, abdom en, w/o contr ast No observ ation record ed. [facility] [address] [facility] [address], [place], [address], 02/13/2024 11:04:29 02/22/20 24 02/22/2024 XR, hip, unila teral , 2 or 3 view Hip Comp 2 Views Right Reason : hip pain COMPAR LUDY: None. FINDIN GS: No fractu re or disloc ation. Well preser sandee joint space. Normal femora l head contou r withou t eviden ce of avascu lar necros is. Normal soft tissue s. Multip le phlebo liths of differ ent sizes in the right pelvis . IMPRES DERICK: No acute fractu re or disloc ation is seen involv ing the right hip. WSN: [id number] Orderi ng Physic deepa: Rosibel Rodriguez Y Dictat ed By: Kwasi Yoo MD, V Dictat ed Date/T will: 3:28 pm Review ed By: Delmi badillo MD, Kwasi Cazares Signed By: Kwasi Yoo MD, V Signed Date/T will: 3:28 pm Transc ribed By: EDGARD Transc ribed Date/T will: 3:27 pm Patien t Class: Outpat ient NOBLE [facility] (Outpt Imaging) [address] , [place], [address], 02/23/2024 09:26:07 02/22/20 24 02/22/2024 XR, hip, unila teral , 2 or 3 view No observ ation record ed. [email or web address] [facility] [address] , [place], [address], 02/23/2024 09:26:43 03/03/20 24 03/02/2024 US, abdom en, compl ete US Abdome n Comp Reason : R10.9 UNSPEC IFIED ABDOMI NAL PAIN; COMPAR LUDY: Contra st CT abdome n 12/13/19 FINDIN GS: Liver: Normal in size and echote xture. No focal lesion is seen. Main portal vein patent with normal hepato petal direct ion of flow. Gallbl adder: No gallst ones. Normal wall thickn ess. No perich olecys tic fluid. Negati ve Kingsley sign. Biliar y Tree: No intrah epatic or extrah epatic bile duct dilati on is identi fied. Common duct: 0.5 cm. Pancre as: No abnorm ality in the visual ized portio ns of the pancre as. Spleen : Normal in size and echote xture. 0.5 cm cranio caudal span. Right kidney : 10.4 cm in length . Normal parenc hymal echote xture and thickn ess. There are 2 adjace nt calcul i measur ing approx imatel y 7 mm each in the interp olar region and a 5 mm stone in the lower pole. The appear ance is simila r to that on the recent CT. 0.9 cm interp olar cortic al cyst unchan ged. No hydron ephros is or solid mass. Left kidney : 11.1 cm in length . Normal parenc hymal echote xture and thickn ess. No hydron ephros is, stone or mass. Aorta: Normal calibe r and contou r. Inferi or vena cava: Normal . Other: No free fluid. IMPRES DERICK: Nonobs tructi ng right nephro lithia sis, simila r to that seen on CT 12/13/19. No cause identi fied for pain. WSN: [id number] Orderi ng Physic deepa: Rosibel Rodriguez Y Dictat ed By: Leonard Sanches MD Dictat ed Date/T will: 10:20 a Review ed By: Leonard Sanches MD Signed By: Leonard Sanches MD Signed Date/T will: 10:20 am Transc ribed By: EDGARD Transc ribed Date/T will: 10:13 am Patien t Class: Outpat ient [facility] (Outpt Imaging) [address] [place], [address], 03/07/2024 12:40:24 03/03/20 24 03/02/2024 US, abdom en No observ ation record ed. [email or web address] Not Available 2023 09:50:56 Result Notes None recorded. Problems Name Problem SNOMED Code Status Onset Date Resolution Date Notes Provider Name and Address Organization Details Recorded Time Angina pectoris 387190231 Completed 201204/21/2014 RECORDED 10/15/19 13 1:39AM BY ESTEBAN AGUIRRE ON/ADDEN COLEMAN Benitez 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 PAP AND MAMMO UTD PT WILL SET UP COLONOSC OPY; RECORDED 09/06/20 12 1:37PM BY ESTEBAN AGUIRRE ON/ADDEN DUM Еленаlaxmi vaz, [facility] 6 09:31:12 Screenin g for malignan t neoplasm of cervix Completed 201304/21/2014 RECORDED 01/22/20 14 4:26PM BY JANICE BOWEN MA, ANNOTATI ON/ADDEN DUM Елена Benitez null, [facility] 6 09:31:12 Screenin g for malignan t neoplasm of colon Completed 201204/21/2014 IMPRESSI ON: PT TO SET UP APPT; RECORDED 09/05/20 13 12:50PM BY JANICE BOWEN MA, ANNOTATI ON/ADDEN DUM Елена Benitez null, [facility] 6 09:31:12 Cough [id number] Completed 201204/21/2014 IMPRESSI ON: SPOKE TO TP TODAY COUGHIS HORRIBLE NO REST, GREEN NASAL DISCAHRG E TX WITH ABX ND PREDNISO NE; RECORDED 09/05/20 13 12:50PM BY JANICE BOWEN MA, ANNOTATI ON/ADDEN DUM Елена Benitez null, [facility] 6 09:31:12 Dysfunct ional uterine bleeding Completed 201204/21/2014 IMPRESSI ON: JSUT HAD UTERINE ABLATION ; RECORDED 09/05/20 13 12:50PM BY JANICE BOWEN MA, ANNOTATI ON/ADDEN DUM Елена Benitez null, [facility] 6 09:31:12 Malaise and fatigue [id number] Completed 201204/21/2014 RECORDED 09/05/20 13 12:50PM BY JANICE BOWEN MA, ANNOTATI ON/ADDEN DUM Елена Benitez null, [facility] 6 09:31:12 Essentia l hyperten derick [id number] Completed 201204/21/2014 RECORDED 10/15/19 13 1:39AM BY ESTEBAN AGUIRRE ON/ADDEN DUM Елена Benitez null, [facility] 6 09:31:12 Screenin g for malignan t neoplasm of breast Completed 201104/21/2014 RECORDED 09/06/20 12 1:37PM BY ESTEBAN AGUIRRE ON/ADDEN DUM Елена Benitez null, [facility] 6 09:31:12 Acute myocardi al infarcti on 08477587 Completed 201204/21/2014 RECORDED 10/15/19 13 1:39AM BY ESTEBAN AGUIRRE ON/ADDEN DUM Елена Benitez null, [facility] 6 09:31:12 Osteopor osis 70969297 Completed 201204/21/2014 RECORDED 10/15/19 13 1:39AM BY ESTEBAN AGUIRRE ON/ADDEN DUM Елена Benitez null, [facility] 6 09:31:12 Chronic sinusiti s 46456202 Completed 201204/21/2014 RECORDED 09/05/20 13 12:50PM BY JANICE BOWEN MA, ANNOTATI ON/ADDEN DUM Елена Benitez null, [facility] 6 09:31:12 Disorder of skin and/or subcutan eous tissue 74083364 Completed 201304/21/2014 IMPRESSI ON: SEEMS LIKE A SMALL BENIGN CYST, NO TX UNLESS ENLARGES , BECOMES RED OR INFLAMED , THEN PT TO DERMATOL OGY; RECORDED 01/22/20 14 4:26PM BY JANICE BOWEN MA, ANNOTATI ON/ADDEN DUM Еленаlaxmi Benitez null, [facility] 6 09:31:12 Administ ration of diphther ia, pertussi s, and tetanus vaccine Completed 201204/21/2014 RECORDED 09/05/20 13 12:50PM BY JANICE BOWEN MA, ESTEBAN ON/ADDEN DUM Елена vaz [facility] 6 09:31:12 Viral disease 76646768 Completed 201204/21/2014 IMPRESSI ON: RESOLVIN G FLU, HAS HAD IT FOR 4 DAYS, NO ABX OR ANTIVIRA LS NEEDED.; RECORDED 09/05/20 13 12:50PM BY JANICE BOWEN MA, ESTEBAN ON/ADDEN DUM Елена vaz [facility] 6 09:31:12 Administ ration of viral vaccine Completed 201204/21/2014 RECORDED 09/05/20 13 12:50PM BY JANICE BOWEN MA, ESTEBAN ON/ADDEN DUM Елена vaz [facility] 6 09:31:12 Hypercho lesterol emia 08824534 Completed 03/23/2018 Antonia vaz [facility] 0 15:44:34 Fatigue 76662135 Completed 03/23/2018 Antonia vaz [facility] 8 14:52:17 Dysfunct ional uterine bleeding Active Еленаelieser vaz [facility] 6 09:31:12 Dysphagi a 62679614 Completed 03/23/2018 Antonia GlaQue vaz [facility] 8 14:52:02 Injury of head 31108746 Completed 03/23/2018 Antonia GladingJuan Manuel hernandezo milind [facility] 8 14:52:14 Neck pain 73872958 Completed 03/23/2018 Antonia GladingJuan Manuel hernandezo milind [facility] 8 14:52:10 Bilatera l carpal tunnel syndrome [id number] 207690 Active 2019 Antonia vaz [facility] 0 15:43:08 Hyperpar athyroid ism 55521196 Active 2019 Antonia [facility] hospital[facility] boswellkaren null, [facility] 0 15:44:28 Hypercho lesterol emia 56865205 Active 2019 Antonia [facility]ong[facility] hospitalSilvana jones null, [facility] 0 15:44:34 History of calculus of kidney 388695912 Active 2023 SUHAS PRICE MD [address], [place], [address] , [facility] 4 09:44:12 Osteopen ia 916866459 Active 2023 JAIMIE Aguirre, [facility] 4 12:53:28 Vitamin D deficien cy 46491062 Active 2023 JAIMIE Aguirre, [facility] 4 12:53:29 History of parathyr oidectom y 27277518945 9103 Active 2023 [place]IMIE Aguirre, [facility] 4 12:53:29 Calculus of kidney and ureter 557910486 Active 2023 Jaylon Westfall PA-C [address] [facility] [address], [place], [address] , [facility] 4 10:09:28 Constipa tion 93302212 Active 2023 Jaylon Westfall PA-C [address], [place], [address] , [facility] 4 10:09:37 Abnormal findings on diagnost ic imaging of skull and head 323580664 Completed 201303/23/2018 HAD MRIS FOR YEARS, LAST MRI OF BRAIN MANY YEARS AGO; RECORDED 01/22/20 14 4:26PM BY JANICE BOWEN MA, [facility]ICE VISIT [facility] 8 14:51:54 Angina pectoris 646757143 Completed 201203/25/2014 RECORDED 10/15/19 13 1:39AM BY ESTEBAN AGUIRRE ON/ADDEN DUM Елена vaz [facility] 6 09:31:12 Adult health examinat ion Completed 201103/25/2014 IMPRESSI ON: 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 PAP AND MAMMO UTD PT WILL SET UP COLONOSC OPY; RECORDED 09/06/20 12 1:37PM BY ESTEBAN AGUIRRE ON/ADDEN DUM Елена vaz [facility] 6 09:31:12 Cardiova scular system problem 206972235 Completed 201303/23/2018 Antonia vaz [facility] 8 14:51:57 Screenin g for malignan t neoplasm of cervix Completed 201303/25/2014 RECORDED 01/22/20 14 4:26PM BY JANICE BOWEN MA, ANNOTATI ON/ADDEN DUM Елена vaz [facility] 6 09:31:12 Screenin g for malignan t neoplasm of colon Completed 201203/25/2014 IMPRESSI ON: PT TO SET UP APPT; RECORDED 09/05/20 13 12:50PM BY JANICE BOWEN MA, ANNOTATI ON/ADDEN DUM Елена vaz [facility] 6 09:31:12 Cough 82926777 Completed 201203/25/2014 IMPRESSI ON: SPOKE TO TP TODAY COUGHIS HORRIBLE NO REST, GREEN NASAL DISCAHRG E TX WITH ABX ND PREDNISO NE; RECORDED 09/05/20 13 12:50PM BY JANICE BOWEN MA, ESTEBAN ON/ADDEN DUM Елена vaz [facility] 6 09:31:12 Displace ment of interver tebral disc without myelopat hy 32823221 Completed 201303/23/2018 L4L5 Antonia Leon karen milind, [facility] 8 14:52:08 Dysfunct ional uterine bleeding Completed 201203/25/2014 IMPRESSI ON: NUNO HAD UTERINE ABLATION ; RECORDED 09/05/20 13 12:50PM BY JANICE BOWEN MA, ANNOTATI ON/ADDEN DUM Елена vaz, [facility] 6 09:31:12 Tinnitus 18874061 Completed 201303/23/2018 Antonia boswellenzo milind, [facility] 8 14:52:04 Malaise and fatigue 183094340 Completed 201203/25/2014 RECORDED 09/05/20 13 12:50PM BY JANICE BOWEN MA, ESTEBAN ON/ADDEN DUM Елена vaz [facility] 6 09:31:12 Pure hypercho lesterol emia 615865293 Completed 201303/23/2018 Antonia boswellenzo milind [facility] 8 14:51:47 Essentia l hyperten derick 60298156 Completed 201203/25/2014 RECORDED 10/15/19 13 1:39AM BY ESTEBAN AGUIRRE ON/ADDEN DUM Елена vaz [facility] 6 09:31:12 Screenin g for malignan t neoplasm of breast Completed 201103/25/2014 RECORDED 09/06/20 12 1:37PM BY ESTEBAN AGUIRRE ON/ADDEN DUM Елена vaz [facility] 6 09:31:12 Migraine 65602336 Active 2013 Елена vaz [facility] 6 09:31:12 Acute myocardi al infarcti on 84375495 Completed 201203/25/2014 RECORDED 10/15/19 13 1:39AM BY ESTEBAN AGUIRRE ON/ADDEN DUM Елена vaz [facility] 6 09:31:12 Patient status finding 097102596 Completed 201312/15/2016 JAIMIE Aguirre [facility] 7 13:25:12 Osteopor osis 13106036 Completed 201203/25/2014 RECORDED 10/15/19 13 1:39AM BY ESTEBAN AGUIRRE/ADDEN DUM Елена vaz [facility] 6 09:31:12 Chronic sinusiti s 16724477 Completed 201203/25/2014 RECORDED 09/05/20 13 12:50PM BY JANICE BOWEN MA, ANNOTATI ON/ADDEN DUM Елена vaz [facility] 6 09:31:12 Disorder of skin and/or subcutan eous tissue 91174684 Completed 201303/25/2014 IMPRESSI ON: SEEMS LIKE A SMALL BENIGN CYST, NO TX UNLESS ENLARGES , BECOMES RED OR INFLAMED , THEN PT TO DERMATOL OGY; RECORDED 01/22/20 14 4:26PM BY JANICE BOWEN MA, ESTEBAN ON/ADDEN DUM Елена vaz [facility] 6 09:31:12 Administ ration of diphther ia, pertussi s, and tetanus vaccine Completed 201203/25/2014 RECORDED 09/05/20 13 12:50PM BY JANICE BOWEN MA, ANNOTATI ON/ADDEN DUM Елена vaz [facility] 6 09:31:12 Viral disease 38771019 Completed 201203/25/2014 IMPRESSI ON: RESOLVIN G FLU, HAS HAD IT FOR 4 DAYS, NO ABX OR ANTIVIRA LS NEEDED.; RECORDED 09/05/20 13 12:50PM BY JANICE BOWEN MA, ANNOTATI ON/ADDEN DUM Елена vaz [facility] 6 09:31:12 Administ ration of viral vaccine Completed 201203/25/2014 RECORDED 09/05/20 13 12:50PM BY JANICE BOWEN MA, ANNOTATI ON/ADDEN COLEMAN vaz [facility] 6 09:31:12 Problem Notes None recorded. Procedures Surgical History Date Name Laterality Status Provider Name and Address Organization Details Recorded Time 023 Date of Last Pap Smear completed Michelle Boyce MA [facility] 11/20/2023 13:05:43 022 Most Recent Mammogram completed Symone Cespedes [facility] 08/18/2022 14:17:22 021 Dxa bone density bria vrt fx completed Symone Cespedes [facility] 09/21/2022 12:56:48 020 parathyroidectomy completed Alejandrahaylee Tadeo [facility] 02/28/2020 10:03:19 020 parathyroidectomy completed Елена Benitez [facility] 09/22/2020 11:14:40 019 Mammogram both breasts completed Alejandra Carlyle [facility] 12/31/2018 16:52:34 019 Ultrasound breast limited completed Alejandra Carlyle [facility] 12/31/2018 16:54:37 017 Mammogram one breast completed Estefani Montana [facility] 06/12/2017 13:17:33 017 Ultrasound breast limited completed Maggie Wen [facility] 12/26/2016 15:02:28 016 Mammogram Diagnostic Bilateral completed Елена Benitez [facility] 11/25/2015 09:29:40 015 Date of Last Colonoscopy completed Michelle Boyce MA [facility] 03/23/2018 14:33:40 015 EGD completed Maribel Suarez MA [facility] 09/30/2015 16:03:15 013 Dilation and Curettage completed Michelle Boyce MA [facility] 05/29/2015 09:18:19 Disk Grinder Surgery completed Michelle Boyce MA [facility] 09/16/2020 14:54:04 Caesarean Section completed Michelle Boyce MA [facility] 09/16/2020 14:54:04 Colonoscopy completed Michelle Boyce MA [facility] 09/16/2020 14:54:04 Imaging Results Imaging Date Name Status LastModified by Organiz ation Details LastModified Time 09/26/2022 CT, abdomen + pelvis, w/o contrast completed [email or web address] Information not available 12/07/2022 11:38:05 12/12/2022 CT ABD/pelvis w/ IV contrast only completed [email or web address] (Outpt Imaging) [address] [place], [address], 12/13/2022 10:25:52 08/23/2023 MAMMO, screening, digital, bilateral completed [facility] [address] [facility] [place], [address], 09/06/2023 10:29:22 09/28/2023 bone density completed [email or web address] Information not available 02/12/2024 10:01:37 02/12/2024 CT, abdomen, w/o contrast completed [place] [facility] [address], [address], 02/13/2024 11:04:29 02/22/2024 XR, hip, unilateral, 2 or 3 view completed [facility] (Outpt Imaging) [address] [place], [address], 02/23/2024 09:26:07 02/22/2024 XR, hip, unilateral, 2 or 3 view completed [email or web address] [facility] [address] [place], [address], 02/23/2024 09:26:43 03/02/2024 US, abdomen, complete completed [facility] [facility] [address], [place], [address], 03/07/2024 12:40:24 03/02/2024 US, abdomen completed Information n ot available 03/04/2024 09:50:56 Procedure Notes None recorded. Medical Equipment None Reported. Allergies Allergen ID Allergen Name Allergen Category Reaction Reaction Severity Criticality Documentation Date Start Date Code Code System Note Provider Name and Address Organization Details Recorded Time 90661 No known allergy (situatio n) Not available Not available Not available Not available 11/20/2023 [id number] SNOMED Michelle Boyce MA [facility] 12:53:38 No known drug allergies Medications Name Sig Start Date Stop Date Status Note LastModified by Organization Details LastModified Time valacyclo vir 1 gram tablet Take 1 tablet every 8 hours by oral route for 7 days. 07/16 completed Not Available Not Available Not Available meloxicam 15 mg tablet TAKE 1 TABLET BY MOUTH ONCE A DAY. TAKE WITH FOOD OR MILK (OR IMMEDIAT KAY AFTER). 02/15 completed Not Available Not Available Not Available prednison e 20 mg tablet DAILY 09/18 completed RECORDED 12/30/19 13 10:47AM BY ANTONIA Barboza MD, MEDICATI ON AUTO-KANE CTIVATIO N; Not Available Not Available Not Available Zithromax Z-Jaxson 250 mg tablet QD 09/18 completed RECORDED 12/30/19 13 10:47AM BY ANTONIA Barboza MD, MEDICATI ON AUTO-KANE CTIVATIO N;2PO QD FOR 1 DAY, THEN 1 QD FOR 4 DAYS. Not Available Not Available Not Available oxycodone -acetamin ophen 5 mg-325 mg tablet 05/02 completed Not Available Not Available Not Available hydrocort isone 2.5 % topical cream with perineal applicato r APPLY A SMALL AMOUNT TO AFFECTED AREA TWICE A DAY NEEDED FOR HEMORRHO IDS 02/21 completed Not Available Not Available Not Available bisacodyl 10 mg rectal supposito ry 05/02 completed Not Available Not Available Not Available tacrolimu s 0.03 % topical ointment 06/11 completed Not Available Not Available Not Available betametha sone dipropion ate 0.05 % topical cream APPLY A THIN LAYER TO THE AFFECTED AREA(S) BY TOPICAL ROUTE ONCE DAILY x 1 wk 07/16 completed Not Available Not Available Not Available omeprazol e 20 mg capsule,d elayed release TAKE 1 CAPSULE BY MOUTH EVERY DAY 01/05 completed Not Available Not Available Not Available diclofena c sodium 75 mg tablet,de layed release 07/16 completed Not Available Not Available Not Available mupirocin 2 % topical ointment APPLY A SMALL AMOUNT TOPICALL Y 3 TIMES A DAY 11/19 completed Not Available Not Available Not Available norethind valarie acetate 5 mg tablet DAILY 05/07 completed RECORDED 05/07/20 13 9:04AM BY MICEHLLE BOYCE, OFFICE VISIT; Not Available Not Available Not Available gabapenti n 100 mg capsule Take 2 capsules 3 times a day by oral route for 30 days. 03/23 completed Not Available Not Available Not Available ibuprofen 600 mg tablet 03/23 completed Not Available Not Available Not Available propranol ol 20 mg tablet TAKE 1 TABLET BY MOUTH TWICE A DAY active Not Available Not Available No t Available oxycodone 5 mg tablet 03/23 completed Not Available Not Available Not Available fluocinol one 0.025 % topical cream 05/02 completed Not Available Not Available Not Available codeine-g uaifenesi n oral syrup Q 6HRS PRN COUGH 05/07 completed RECORDED 05/07/20 13 9:04AM BY MICHELLE BOYCE, OFFICE VISIT;DO NOT DRIVE WHILE TAKING THIS MEDICATI ON DUE TO POSSIBLE DROWSINE SS Not Available Not Available Not Available cyclobenz aprine 5 mg tablet Take 1 tablet 3 times a day by oral route as needed for 15 days. 12/15 completed Not Available Not Available Not Available Readi-Cat 2 2.1 % (w/v), 2.0 % (w/w) oral suspensio n Take 450 mL twice a day by oral route as directed for 1 day. 01/04 completed Not Available Not Available Not Available Stool Softener 2 at hs 06/11 completed Not Available Not Available Not Available Vitamin D3 1000 po qd active Not Available Not Available No t Available Metamucil take once daily 09/16 completed Not Available Not Available Not Available Zostavax (PF) 19,400 unit/0.65 mL subcutane ous suspensio n ADORE X 1 05/08 completed RECORDED 05/16/20 13 10:04AM BY ANTONIA Barboza MD, MEDICATI ON AUTO-KANE CTIVATIO N; Not Available Not Available Not Available omeprazol e 20 mg tablet,de layed release Take 1 tablet every day by oral route for 30 days. 09/30 completed Not Available Not Available Not Available Stool Softener 100 mg tablet Take 1 tablet twice a day by oral route. 09/16 completed Not Available Not Available Not Available Linzess 72 mcg capsule TAKE 1 CAPSULE BY MOUTH ONCE A DAY active Not Available Not Available No t Available Readi-Cat 2 2 % (w/v) oral suspensio n 01/04 completed Not Available Not Available Not Available Vitals Date Recorded Body height Body mass index (BMI) Body weight Oxygen saturation Oxygen saturation in Arterial blood by Pulse oximetry Heart rate Body temperature Systolic blood pressure Diastolic blood pressure Provider Name and Address Organization Details Last Updated DateTime 3 154.94 cm 27.3 kg/m2 62264.1 g 98 % 98 % 75 /min 97.9 [degF] 127 mm[Hg] 79 mm[Hg] Michelle Boyce MA [facility] [place] 3 09:18:50 Date Recorded Body height Provider Name an d Address Organization Details Last Updated DateTime 01/04/2023 154.94 cm Rhea Smith MA [facility] [place] 01/04/2023 15:19:21 Date Recorded Body height Body mass index (BMI) Body weight Oxygen saturation Oxygen saturation in Arterial blood by Pulse oximetry Heart rate Body temperature Systolic blood pressure Diastolic blood pressure Provider Name and Address Organization Details Last Updated DateTime 4 154.94 cm 26.9 kg/m2 25737.5 2 g 98 % 98 % 82 /min 98.2 [degF] 123 mm[Hg] 76 mm[Hg] Michelle Boyce MA [facility] 4 13:03:07 Date Recorded Body height Body mass index (BMI) Body weight Heart rate Oxygen saturation Oxygen saturation in Arterial blood by Pulse oximetry Body temperature Systolic blood pressure Diastolic blood pressure Provider Name and Address Organization Details Last Updated DateTime 4 154.94 cm 26.6 kg/m2 08660.5 2 g 74 /min 98 % 98 % 98.3 [degF] 135 mm[Hg] 84 mm[Hg] Camille Valdes MA [facility] 4 09:17:58 Date Recorded Body height Body mass index (BMI) Body weight Heart rate Oxygen saturation Oxygen saturation in Arterial blood by Pulse oximetry Body temperature Systolic blood pressure Diastolic blood pressure Provider Name and Address Organization Details Last Updated DateTime 4 154.94 cm 26.6 kg/m2 74779.5 2 g 74 /min 99 % 99 % 99.8 [degF] 134 mm[Hg] 76 mm[Hg] Angela Lake LPN [facility] 4 14:28:35 Social History Question Answer Notes LastModified by Organizat ion Details LastModified Time Tobacco Smoking Status Never Smoker Michelle Boyce MA [facility] 05/14/2014 09:15:01 What Is Your Level Of Alcohol Consumption? Occasional [email or web address] Information not available 05/14/2014 Is Blood Transfusion Acceptable In An Emergency? Yes [email or web address] Information not available 05/29/2015 What Is Your Level Of Caffeine Consumption? Occasional [email or web address] Information not available 05/14/2014 Are You Currently Employed? Yes [email or web address] Information not available 05/14/2014 What Type Of Diet Are You Following? REGULAR [email or web address] Information not available 05/14/2014 Do You Or Have You Ever Used E-cigarettes Or Vape? Never Used Electronic Cigarettes Information not available 02/15/2021 Are There Any Guns Present In Your Home? Yes Information not available 02/15/2021 Live Alone Or With Others? With Others Lashae Wallace [email or web address] Information not available 05/02/2019 Do You Take Precautions To Prevent Distracted Driving? Yes [email or web address] Information not available 05/29/2015 How Often Do You Need To Have Someone Help You When You Read Instructions, Pamphlets, Or Other Written Material From Your Doctor Or Pharmacy? Never [email or web address] Information not available 05/29/2015 Have You Served In The ? No [email or web address] Information not available 12/15/2016 Have You Or Anyone In Your Household Had Any Of The Following Symptoms In The Last 14 Days: Sore Throat, Cough, Chills, Body Aches For Unknown Reasons, Shortness Of Breath For Unknown Reasons, Loss Of Smell, Loss Of Taste, Fever At Or Greater Than 100 Degrees Fahrenheit? No [email or web address] Information not available 06/11/2020 Are You Or Anyone In Your Household A Health Care Provider Or Emergency Responder? No [email or web address] Information not available 06/11/2020 To The Best Of Your Knowledge Have You Been In Close Proximity To Any Individual Who Tested Positive For COVID-19? No Information not available 06/11/2020 *AWV ONLY* Are You Presently Prescribed Opioid Medication By PCP Or Specialist? If YES -Provider Assess The Benefit For Other, Non-opioid Pain Therapies Instead, Even If The Patient Does Not Have OUD But Is Possibly At Risk. No [email or web address] Information not available 11/20/2023 Have You Recently Traveled To A COVID-19 High Risk Area Or Gathering In The Last 10 Days? No [email or web address] Information not available 07/16/2021 What Was The Date Of Your Most Recent Tobacco Screening? 11/20/2023 [email or web address] Information not available 11/20/2023 How Many Children Do You Have? 2 [email or web address] Information not available 05/02/2019 What Is Your Relationship Status? Information not available 02/15/2021 Seat Belts Used Routinely Yes [email or web address] Information not available 05/14/2014 Are You Sexually Active? Yes Information not available 05/02/2019 Smoke Alarm In Home Yes Information not available 05/14/2014 Are You Passively Exposed To Smoke? No [email or web address] Information not available 11/20/2023 Do You Or Have You Ever Used Smokeless Tobacco? Never Used Smokeless Tobacco [email or web address] Information not available 05/02/2019 How Much Tobacco Do You Smoke? No [email or web address] Information not available 09/30/2015 General Stress Level Low [email or web address] Information not available 11/20/2023 Do You Use Sunscreen Routinely? Yes Information not available 05/14/2014 Sex: Unknown Functional Status Question Answer Note LastModified by Organization D etails LastModified Time Are you able to walk? YESWOREST [email or web address] Information not available 07/16/2021 Are you able to care for yourself? Yes [email or web address] Information not available 05/14/2014 What is your exercise level? None [email or web address] Information not available 07/16/2021 Mental Status None recorded. Family History Relationship Description Onset Age of this Age Resolved Age Notes LastModified by Organization Details LastModified Time Mother Hypertensive disorder [email or web address] Not available 06/11 15:05:25 Mother Alzheimer's disease [email or web address] Not available 11/19 13:04:34 Father Myocardial infarction 85 [email or web address] Not available 02/15 15:02:55 Father Heart disease Not available 06/11 15:05:25 Unspecified Relation Migraine [email or web address] Not available 06/11 15:05:25 Unspecified Relation Malignant tumor of breast [email or web address] Not available 06/11 15:05:25 Notes:No FH of breast or col on cancer Medical History Condition Response Coronary Artery Disease N Other N Gout N Kidney Stones Y Blood Diseases N Hyperthyroidism N Breast Cancer N mrsa exposure N Hypothyroidism N Depression N COPD N Lung Disease N Developmental or Behavioral Disorders N Defects or Inherited Disease N Breast Problem N Anesthesia Complications N Headaches/Migraines Y Varicose Veins N Anxiety Disorder N Muscle, Joint, or Bone Problems N Obesity N Vision or Eye Problems Y Arthritis N Head Injury/Concussion N Polyps Y Infertility N Mental Disorder N Congenital Anomalies N Acid Reflux (GERD) N Cancer N Stroke N ADHD N Endometriosis N High Cholesterol N Liver Disease N Headaches N Fibromyalgia N Kidney Disease N Heart Problems N Ear or Hearing Problems N Hospitalizations N Thyroid Problems N GI Problems N Developmental Delay N Acne N Skin Problems N Eating Disorder N Anemia N Constipation Y Bladder Problems N Mental Illness N Ovarian Cancer N Diabetes N Bedwetting N Blood Transfusions N Seizures/Epilepsy N Heart Problems/Murmur N Tuberculosis N AIDS/HIV N Congestive Heart Failure (CHF) N Eczema N Diverticulitis N Abuse/Domestic Violence N Asthma N Allergies N Reflux/GERD N Hepatitis N Heart Disease N Pulmonary Embolism N Hypertension N Chicken Pox Y Autism Spectrum Disorder (ASD) N Osteoporosis N Gynecological History Statement/Question Response Abnormal Pap N Date of Last Pap Smear 02/09/2023 Date of Last Colonoscopy 07/29/2015 Most Recent Mammogram 08/17/2022 Obstetrics History GPAL:G 0 P 0 0 0 0 Immunizations Vaccine Type Date Status Note Provider Nam e and Address Organization Details Recorded Time COVID-19, mRNA, LNP-S, PF, 100 mcg/0.5mL dose or 50 mcg/0.25mL dose 09/23/2020 completed JAIMIE Aguirre [facility] 07/16/2021 11:18:39 COVID-19, mRNA, LNP-S, PF, 100 mcg/0.5mL dose or 50 mcg/0.25mL dose 10/21/2020 completed JAIMIE Aguirre [facility] 07/16/2021 11:19:18 COVID-19, mRNA, LNP-S, PF, 100 mcg/0.5mL dose or 50 mcg/0.25mL dose 07/08/2021 completed JAIMIE Burch [facility] 02/12/2024 09:13:58 COVID-19, mRNA, LNP-S, bivalent, PF, 50 mcg/0.5 mL or 25mcg/0.25 mL dose 07/07/2022 completed JAIMIE Aguirre [facility] 12/02/2022 09:12:52 COVID-19, mRNA, LNP-S, PF, 50 mcg/0.5 mL 08/14/2023 JAIMIE Aranda [facility] 11/20/2023 12:52:57 Tdap 05/07/2013 completed Not Available [facility] 03/25/2014 13:45:11 Past Encounters Encounter ID Performer Location Encounter Start Date Encounter Closed Date Diagnosis/Indication Diagnosis SNOMED-CT Code Diagnosis ICD10 Code Diagnosis Note [id number] [facility] [address] [facility] [place] [address] 04/16/2012 00:00:00 [id number] auto[facility]Comm erce [address] [facility] [place], [place] [address] 09/06/2012 00:00:00 [id number] auto[facility]Comm erce [address] [facility] [place], [place] [address] 05/07/2013 00:00:00 [id number] auto[facility]Comm erce [address] [facility] [place], [place] [address] 09/05/2013 00:00:00 [id number] auto[facility]Comm erce [address] [facility] [place] [address] 01/21/2014 00:00:00 [id number] Adele Burk [place] Main Office [address] [address] 05/14/2014 09:05:33 05/14/2014 09:52:49 Adult health examination [id number] pt is utd on her mammogram and pap smear. She is feeling well, hears a whooshing sound when she turns her head to the right, no weaknessor othe symptoms, she will set up a colonoscop y. Migraine 13016739 pt see s her neurologis t and al is well, migraines well controlled . Hypercholesterolemia 48644692 never had will check fasting today Fatigue 24990024 fatigue [id number] Enedina Martinez Main Office [address] [address] 05/29/2015 09:03:05 05/29/2015 09:53:45 Adult health examination 606295596 utd on papa dn mammogram, I urged her to get colonoscop y which she will call for Screening for malignant neoplasm of colon 656752901 pt to set up appt Migraine 15218775 pt see s her neurologis t and al is well, migraines well controlled . Dysfunctio nal uterine bleeding 05411353 administrative program specialist doing a workup Dysphagia 86702577 see h x, intermitta nt, ? GERD related ro anxiety, will tx with PPI, if not better needs to get EGD with Dr Bustamante, pt will set up appt,s he knows not to ignore symptoms, if not fully resolved needs GI eval [id number] Antonia JasmineQue karen Main Office [address] [place] [address] 09/30/2015 15:43:04 09/30/2015 16:39:42 Dysphagia 69142374 R13.10 nl EGD and colonoscop y, most likely related to some anxiety, mostly resolved and is very transient, if any worsening or new symptoms return, work on relaxation [id number] Antonia Edward karen Main Office [address] [place] [address] 05/23/2016 09:54:25 05/23/2016 10:42:30 Injury of head 08375313 S09.90XA see above, no LOC, return inf any worsening, dizziness, vision change or vomiting and lethargy Fall W19.XXXA see above Neck pain 22980268 M54.2 due to head trauma, nl exam, treat with motrin and flexeril [id number] Antonia Edward boswellenzo Main Office [address] [place] [address] 12/15/2016 13:17:31 12/15/2016 14:06:40 Adult health examination 936448451 Z00.00 utd on pap and mammogram, pt is utd on colonoscop y Alopecia 11012988 L65.9 on rogaine shampoo, most likely due to hormones Neck pain 81334927 M54.2 use gabapentin as needed Migraine 48117704 G43.90 9 pt sees her neurologis t and al is well, migraines well controlled . [id number] Antonia JasmineQue karen Main Office [address] [place] [address] 11/24/2017 10:50:18 11/24/2017 11:51:46 Constipation 43121189 K59.00 new to pt, will do a clean out with miralax, bid until loose BM then qd then qod, if not getting resolution or constipati on returns will refer to GI . colonoscop y 2 years ago, pt is aware [id number] Antonia [facility] Main Office [address] [facility] [place] [address] [place] [address] 03/23/2018 14:25:21 03/23/2018 15:13:58 Adult health examination 969722872 Z00.00 utd on pap and mammogram, pt is utd on colonoscop y Migraine 25671166 G43.90 9 pt sees her neurologis t and al is well, migraines well controlled . Patellofem oral stress syndrome 572720217 M22.2X1 M22.2X2 pt to see PT, needs to strengthen quads [id number] Antonia [facility] Main Office [address] [facility] [address] [place] [address] 05/02/2019 12:53:09 05/02/2019 13:35:04 Adult health examination 795994666 Z00.00 utd on pap and mammogram, pt is utd on colonoscop y, pt has administrative program specialist appt 09/30 Migraine 88740467 G43.90 9 pt sees her neurologis t and al is well, migraines well controlled . propanolol really helps. Hypercholesterolemia 136 91860 E78.00 check fasting since is post menopausal Chronic constipation 236 458402 K59.09 pt will do miralax 2 times a week and keep on stool softeners. has a rectocoele , avoid getting constipate d [id number] [facility] Main Office [address] [facility] [address] [place] [address] 06/11/2020 14:53:32 06/11/2020 15:48:00 Adult health examination 231030985 Z00.00 utd on pap and colonoscop y, mammogram scheduled for Jul 2020, pt is utd on colonoscop y.Resistan ce exercise discussed. Follows DIRECTOR OPERATING ROOM for well womans visit.Due for dental hygienist visit. Migraine 75335648 G43.90 9 pt sees her neurologis t and al is well, migraines well controlled . propanolol really helps. Hyperparathyroidism 6699 9008 E21.3 s/p resection of one gland.-Bernardino l get Vit D and Ca2+, ordered today.-Adv ised patient to take 1000 U on D3 OTC. Bilateral carpal tunnel syndrome 4959520952 1015171 G56.03 Was following neurologis t, has splint and may need injections Hypercholesterolemia 136 34316 E78.00 Diet restrictio n discussed. Will repeat fasting today, ordered today [id number] Antonia jones Main Office [address] [facility] [place] [address] [facility] [place] [place] [address] 09/16/2020 14:46:35 09/16/2020 15:47:21 Hypercholesterolemia 60990992 E78.00 ASCVD risk 2.6%. no meds indicated. diet and exercise Vitamin D deficiency 347 09682 E55.9 will increase to 2000 units a day, level low 30's Hyperparathyroidism 6699 9008 E21.3 hx of parathyroi d surgery in 02/[address] Peters. will refer to endo. normal ionized calcium 09/2020 [id number] Jaylon Westfall PA-C Main Office [address] [facility] [address] [place] [address] 02/15/2021 14:58:54 02/15/2021 16:25:37 Herpes zoster 7236691 B02.[address] Nichole - very suspicious for shingles - will rx c valtrex, trial c calamine - if no sig improvemen t in 3-5 days then notify us and fill script for steroid cream [id number] Antonia JasminedaveJuan Manuel jones Main Office [address] [place] [address] 07/16/2021 10:53:33 07/16/2021 11:53:32 Adult health examination 296429527 Z00.00 utd on pap and colonoscop y, mammogram scheduled for Aug 2021,Resis tance exercise discussed. Follows DIRECTOR OPERATING ROOM for well womans visit. Hypercholesterolemia 136 10385 E78.00 ASCVD risk 2.6%. no meds indicated. diet and exercise work on lowering LDL in diet Migraine 39087730 G43.90 9 pt sees her neurologis t and al is well, migraines well controlled . propanolol really helps. History of calculus of kidney 552656337 Z87.442 plan is for pt to see Dr Olivares and get kidney stones treated, she is reluctant, I urged her to make the appt Skin lesion 40067068 L98 .9 pt interested in skin check, she wants to go to [place], she will make appt [id number] Sol Villela Main Office [address] [facility] [address] [place] [address] 10/11/2021 11:22:14 10/11/2021 12:21:06 Upper abdominal pain 53264147 R10.10 check labs today, US this week to rule out gallbladde r issue, stones in GB or kidney stones (less likely). EKG normal, no acute changes. PT advised to eat light, try PPI for 2 weeks, avoid acidic food, caffeine, alcohol, spicy foods, eating before bed. Call if any changes to symptoms, worsening; ED if acute. Short term followup EKG normal today , history not consistent with cardiac type pain. [id number] Anthony Burgess MD Main Office [address] [address] [place] [address] 01/05/2022 14:19:28 01/05/2022 15:11:52 Abdominal pain 84547530 R10.9 Probably secondary to chronic constipati on which is not well controlled . Chronic constipation 236 621992 K59.09 May possibly benefit from linzess. She is looking for a referral to GI for further evaluation . [id number] Antonia Edward jones Main Office [address] [facility] [place] [address] [place] [address] 09/16/2022 10:50:57 09/16/2022 11:31:05 Adult health examination 445590126 Z00.00 utd on pap, mammo and colonoscop y Hyperparathyroidism 6699 9008 E21.3 hx of parathyroi d surgery in 02/[address] Peters. will refer to endo. normal calcium 12/31 [id number] Antonia Edward jones Main Office [address] [address] [place] [address] 12/02/2022 09:08:34 12/02/2022 09:56:13 Fatigue 26973578 R53.83 fatigue Right lowe r quadrant pain 949210434 R10.[address] done in 10/03, intermitte nt, very unlikely diverticul itis as pain comes and goes and when not present pt is at baseline without pain, also no diarrhea or GI complaints , will reimage with CT abd and pelvis with contrast to evaluate pain. [id number] Antonia ClineJuan Manuel karen [facility] [address] [place], [place] [address] 01/04/2023 14:34:34 01/04/2023 16:55:49 CT of abdomen abnormal [id number] 8459700 R93.5 pt saw GI, they ordered an upper GI for February to evaluate caliber of small intestine (CT with some area dilated and some small) Minimal symptoms. [id number] SUHAS PRICE MD Main Office [address] ABHIN[place]my [place], [place] [address] 11/20/2023 12:49:17 11/20/2023 13:32:46 Adult health examination 221582121 Z00.00 Health Maintenanc e FemaleA) Patient was counseled on healthy diet, exercise and nutrition due to BMI of 26.9 B) ScreeningL ast Mammogram: start at age 50 stop at 75Date: 08/23/2023 Result: BIRADS-1Ne xt: 08/2024 Last Pap smear: start at age 21 to age 65Date: 03/23/2010R esults: HPV negative, no atypical cellsNext: DUE (will request records) Last Colonoscop y: start at age 45-75Date: 07/29/2015 Result: internal hemorrhoid sNext: 07/2025 Last DEXA scan:Date: 08/23/2021 Result: osteopenia Next: DUE (had one in 08/2023) C) Vaccines:I nfluenza: not this yearTdAP: 05/07/2013 -> due, orderedZos ter: orderedPCV 13: due at 06HHJE82: due at 24PPJ31:PC V15:COVID: 09/23/2020, 10/21/2020, 07/08/2021 , 07/07/2022 , 08/14/2023 D) Routine blood work orderedE) Updated patient's history RTC in one year for annual exam or sooner if any acute complaints Hypercholesterolemia 136 52986 E78.00 Hyperparathyroidism 6699 9008 E21.3 - s/p removal of parathyroi d in 2019 (surgical indication due to renal stones and osteopenia )- follows with endo, last seen on 11/04- Recent labs showed normal calcium and normal PTH level. Migraine [id number] G43.90 9 - follows with neurology, last seen on 10/03- currently on propanolol 20mg BID Requires a tetanus booster [id number] Z28.39 Varicella vaccination 68 [id number] Z23 History of calculus of kidney [id number] Z87.442 - none since 2015- follows with urology, last seen on 04/19/23 Osteopenia [id number] M85 .80 - following with endo, last seen on 11/04- last bone density was in 2020 -> DUE HIV screening [id number] Z11.4 Fatigue [id number] R53.83 Constipation 67769389 K5 9.00 - pt currently on linzess 72 mcg given by BENITA [id number] Main Office [address] [facility] [address] [facility] [place] [address] 02/12/2024 09:09:50 02/12/2024 10:08:29 Calculus of kidney and ureter [id number] N20.2 see above --- last seen by uro 8 - rev note - pending get eswl on R === last ct scan a/p 1.16.23, kub 8.2.23, us retroperit oneum 8.2.23 Constipation 39366646 K5 9.00 stable, cont linzess as dir Right side d abdominal pain [id number] R10.9 most likely d/t , much less likely d/t GIwill get ct a/p c cc: urostrongl y encouraged pt to call uro for f/u visitif pain sig increased then encouraged pt to go to [facility] labscont to stay well hydrated [id number] AVI MAYBERRY Main Office [address] [facility] [place] [address] 02/22/2024 14:13:43 02/22/2024 14:42:22 Right sided abdominal pain [id number] R10.9 -was seen on 02/11; had KUB and labwork- w urology on 02/20-KUB revealed kidney stones in the upper right kidney, however urology determined due to location the stones were not causing the symptoms and further evaluate with imaging- mptoms of right sided abdominal pain persists; no change in frequency or severity since last visit-no changes in urinary/liu wel habits; no red flag symptoms-w ill further evaluate with right hip xray and US of abdomen Health Concerns Section Related Observation LastModified by Organization Detai ls LastModified Time None Recorded Concern Status LastModified by Organization Details LastModified Time None Recorded Advance Directives Directive None Recorded Payers Encounter Date Sequence Insurance Name Policy Number Policy [place] Covered Member ID [place] Member ID Guarantor Name 12/02/2022 1 [employer] (PP[employer]) [id number] 2 Robson K Freniere [id number] Robson Freniere 01/04/2023 1 [employer] [id number] 2 Robson K Freniere [id number] Robson Freniere 11/20/2023 1 [employer] ([employer]) [id number] 2 Robson K Freniere [id number] Robson Freniere 02/12/2024 1 [employer] ([employer]) [id number] 2 Robson K Freniere [id number] Robson Freniere 02/22/2024 1 [employer] (PP[employer]) [id number] 2 Robson K Freniere [id number] Robson Kenroyniere Notes Date Note Type Note Provider Name and Address Organization Details Recorded Time 12/02/2022 text/html PT notes for a f ew months she noted RLQ pain. It can last for an hour or a few hours or for days in a row. Worst episode a few weeks ago when it woke her from sleep. Not hurting today, no fever, diarrhea, change in bowels, blood in stool or vomiting. Able to eat regularly. Had a CT scan of abd and pelvis without contrast to f/u kidney stones on 09/26/22. This did not show any abn in colon, ovaries uterus, pancreas of liver. The pain started after this scan. Antonia vaz [facility] 12/02/2022 12:18:53 01/04/2023 text/html Telehealth visit . PT had a CT scan of abdomen and it showed some areas of the small intestine with dilation and some areas less wide. PT saw GI and they want to do a barium swallow and look at caliber of the small intestine. PT notes her symptoms are better, some weeks without any symptoms and has normal BM's. no weight loss Antonia vaz, [facility] 01/04/2023 15:45:58 11/20/2023 text/html Caitlyn Brown is a 63 year old F who presented to the clinic for her annual exam. Patient presented to the emergency room on 10/29/23 for a sprained ankle. Complaints: pt continues to have swelling at the ankle Is not using ASA.OTC/Herbal supplements use: does not take vitamin D Gynecologic HistoryPatient's last menstrual period was in her mid 50sNo spottingSexually active: yes with husbandContraception: menopause+ fibroids and ovarian cystsDenies abnormal pap smears Obstetric HistoryGravida: 2Para: 2AB: 0Livin (C/S)Complications: none Drug use: noneEtoh use: socially with friends (gabino)tobacco use: neverspf/derm: uses Dental: every 6 monthsEye: every year (wears glasses and contacts)Diet: regularActivity: none SUHAS PRICE MD [address] [address], [place], [address], [facility] 11/20/2023 13:35:48 02/12/2024 text/html 63 yo F c h/o constipation on linzess and h/o kidney stones presents c 1 wk h/o R sided abd pain.last seen by uro 8.9.23 - rev note - pending get eswl on R === last ct scan a/p 1.16.23, kub 8.2.23, us retroperitoneum 8.2.23rev last gi note - 5.22last colon = next 11.25no straining, brbprno hematuria, dysuria Jaylon Westfall PA-C [address], [place], [address], [facility] 02/12/2024 10:10:01 02/22/2024 text/html Caitlyn is a 63yr ol d F who presents for right sided abdominal pain. Was seen on 02/11 by PM and saw urology on 02/20. KUB revealed kidney stones in the upper right kidney, urology determined the location was too high to be causing the abdominal pain and advised pt to return to PCP for further imaging. Pt notes the right sided abdominal pain has persisted. Denies of any fever, chills, fatigue, hematuria, changes in bowel/urinary habits. Last colonoscopy was in 2014, next due in 2024. Has been applying a heating pad and taking OTC medications for relief. AVI MAYBERRY [address] [facility] [address], [place], [address], [facility] 02/22/2024 22:59:09 OBGyn Episode No OBEpisode recorded.
== END 2024-09-23 13:32 | disposition home or self-care (01) ==
LOC: HO.MAMMO 13:31
PROVIDERS: PCP Student in an Organized Health Care Education/Training Program; Visit Provider Student in an Organized Health Care Education/Training Program
DX: Z12.31 Encounter for screening mammogram for malignant neoplasm of breast (principal)
CPT/HCPCS: 77063; 77067

== ENCOUNTER → 2024-09-23 13:45 | Outpatient (BNV) | payer OTHER, SELFPAY | PROVIDERS: PCP Student in an Organized Health Care Education/Training Program; Visit Provider Internal Medicine | DX: Z12.31 Encounter for screening mammogram for malignant neoplasm of breast (principal) | CPT/HCPCS: 77063; 77067 ==

== ENCOUNTER 2025-04-01 12:57 | Outpatient (AMB) | payer OTHER, SELFPAY ==
--- NOTE | 2025-04-01 12:59 | MHC.OFFVIS ---
Intake Visit Reasons: 6 mnts Migraine LBP Allergies No Known Allergies Allergy (Verified 04/01/25 13:06) Medication List - Last Reconciled 04/01/25 by Lashae Medina CNP cholecalciferol (vitamin D3) 50 mcg PO DAILY linaclotide (Linzess) 72 mcg PO BID propranolol 20 mg PO BID HPI Comments Details: She was doing okay. Headaches were controlled with propranolol. Neck pain and low back pain has also been okay. Doing some exercises. No falls. Hand symptoms improved with braces, but will occasionally have some numbness. Sleep was okay. She has migraines with and without aura and mild carpal tunnel syndrome. The migraines have been well controlled. Carpal tunnel syndrome has been stable. She has elements of anxiety which has not been a big problem. In the past, used heat patch when LBP acted up. Hip pain resolved. Neck pain, stiffness, and headaches have improved. PENDING SALE TO [facility] Medical History (Updated 04/01/25 @ 13:04 by Lashae Medina CNP) Carpal tunnel syndrome, bilateral upper limbs Carpal tunnel syndrome Cervical disc disease Migraine headache with aura Calculus of kidney Review of Systems Const Denies chills, Denies daytime sleepiness, Denies difficulty sleeping, Denies fatigue, Denies fever(s), Denies frequent falls, Reports headache(s), Denies increased appetite, Denies poor appetite, Denies snoring, Denies weakness, Denies weight gain and Denies weight loss Eyes Denies loss of vision ENT Denies vertigo, Denies dizziness, Reports headache(s) and Reports neck pain Card Denies chest pain at rest, Denies chest pain with activity, Denies syncope, Denies leg edema, Denies palpitations, Denies dyspnea and Denies dyspnea on exertion Resp Denies cough, Denies dyspnea, Denies dyspnea on exertion and Denies snoring GI Denies abdominal pain, Denies constipation, Denies heartburn, Denies diarrhea and Denies nausea Denies urinary frequency, Denies urinary incontinence and Denies urinary urgency Musc Denies abnormal gait, Reports back pain, Denies myalgias, Denies arthralgias, Reports neck pain, Reports numbness and Reports tingling Neuro Denies abnormal gait, Denies vertigo, Denies dizziness, Denies syncope, Denies frequent falls, Reports headache(s), Denies lack of coordination, Denies loss of vision, Denies memory loss, Reports numbness, Denies Other visual disturbances, Denies restless legs, Denies seizure-like activity, Reports tingling, Denies paresthesias, Denies tremor(s) and Denies weakness Psych Denies anxiety, Denies depression, Denies auditory hallucinations, Denies memory loss and Denies visual hallucinations Endo Denies fatigue and Denies palpitations Physical Exam Const Other: General Appearance:? normal, in no acute distress. Heart:? S1, S2 normal, no murmurs. Lungs:? clear anteriorly and posteriorly. Musculoskeletal:? normal. Extremities:? no edema. Psych:? alert, oriented, cognitive function intact, cooperative with exam. Neuro Other: Abnormal Neurological Findings:?none.? Mental Status: alert and oriented X 3. Normal attention, orientation, memory, and affect. Cranial Nerves: Pupils are equal, round, and reactive to light. External ocular muscles are intact. Visual thornton are full, no ptosis. Face is symmetrical, no facial weakness or droop. Facial sensations are normal. Tongue protrudes in midline. Palate elevates symmetrically. Shoulder shrugging is normal Motor Examination: Normal muscle tone, bulk and strength. No atrophy or fasciculations. No drift of the extended upper extremities. DTR 2+. Plantars are flexor. Straight Leg Raisin degrees. Sensory Exam: Normal light touch, temperature, pinprick, vibration, and joint-position sensations. Rhomberg sign is absent. Coordination: No ataxia. No titubation. [id number], lmsb-pwpl-[id number] test, and rapid alternating movements were normal. Gait Exam: Within normal limits. Cerebellar Signs: Rdlwyf-wx-szzr and ymyc-fu-fcjd is normal. No dysdiadochokinesia. Extrapyramidal System: No tremor, rigidity with normal facial expressions. No bradykinesia. No bradyphrenia. Normal arm swing and posture. No propulsion or retropulsion. Speech: Normal. No dysphasia or dysarthria. Assessment & Plan Assessment & Plan (1) Migraine headache with aura: Code(s): G43.109 - Migraine with aura, not intractable, without status migrainosus Category: Medical Qualifiers: Status migrainosus presence: without status migrainosus Intractability: not intractable Qualified Code(s): G43.109 - Migraine with aura, not intractable, without status migrainosus Plan: Continue propranolol 20mg 1 tablet twice a day (2) Carpal tunnel syndrome, bilateral upper limbs: Code(s): G56.03 - Carpal tunnel syndrome, bilateral upper limbs Category: Medical Plan: May continue wrist splints as needed. (3) Cervical disc disease: Code(s): M50.90 - Cervical disc disorder, unspecified, unspecified cervical region Category: Medical (4) Lumbar disc disease: Code(s): M51.9 - Unspecified thoracic, thoracolumbar and lumbosacral intervertebral disc disorder Category: Medical Plan . Coding Level of Care Code Est Pt Level 4 (82110) Diagnoses Migraine with aura and without status migrainosus, not intractable G43.109 Status migrainosus presence: without status migrainosus Intractability: not intractable Carpal tunnel syndrome, bilateral upper limbs G56.03 Cervical disc disease M50.90 Lumbar disc disease M51.9
--- OUTSIDE RECORDS SUMMARY | 2025-04-01 14:00 | XMS_ITS | Data Portability ---
Author Organization [facility], Main Office Address [address] [place] [address] Care Team Providers Care Theatrical Trouper Name Role Phone DOMINGO ANDERSEN Captain Cannery Tender ATUL DORADO Cartographic Aide [facility] GENERAL SURGERY General Surgeon DEYSI MENDEZ Gear Grinding Machine Operator [phone] DAVID ENRIQUEZ Neurologist [facility] ERA (KARI KIM) Orthopedic Surgeon FRANCISCA OCHOA Electroencephalograph Technician NELSY BUSTAMANTE Captain Cannery Tender [phone] SUHAS PRICE Primary Care Provider ELENA OLIVARES Urologist Assessment Encounter Date Assessment Date Assessment LastModified by Organization Details LastModified Time 01/04/2023 01/04/2023 This service was provided using telemedicine. Patient consented to video & audio visit Patient was located in the [facility]. Provider was located in the office. No other persons participated in the telemedicine visit except for the patient unless otherwise indicated here. Total time of visit was 15 minutes. [email or web address] Not available 01/04/2023 15:44:10 02/22/2024 02/22/2024 Discussed with patient the signs/symptoms warranted for a return to office visit and/or an ER visit. Patient understood and agreed with the plan. [email or web address] Not available 02/22/2024 14:33:21 Plan of Treatment Reminders Order Date Submit Date Provider Last Modified By Organization Details Last Modified Time Details Appointments None recorde d. Lab lipid panel, serum 2024 025 [email or web address] [facility], [address], [place], [address], 10:38:11 BMP, serum or plasma 2024 025 NOBLE [facility], [address], [place], [address], 5 14:02:17 CBC w/ auto diff 2024 025 NOBLE [facility], [address], [place], [address], 14:02:18 TSH, ultra-s ensitiv e, serum 2024 025 [email or web address] [facility], [address], [place], [address], 10:38:11 PTH (parath yroid hormone ), intact, serum or plasma 2024 025 NOBLE [facility] (Centralized Electronic Ordering - All Locations), Patient Can Go To The Location Of Their Choice, 14:02:19 vitamin D, 25-hydr oxy, total, serum 2024 025 NOBLE [facility] (Centralized Electronic Ordering - All Locations), Patient Can Go To The Location Of Their Choice, 14:02:18 BMP, serum or plasma 2023 024 NOBLE [facility] (Centralized Electronic Ordering - All Locations), Patient Can Go To The Location Of Their Choice, 06:08:26 CBC w/ auto diff 2023 024 NOBLE [facility] (Centralized Electronic Ordering - All Locations), Patient Can Go To The Location Of Their Choice, 06:08:26 ALT (alanin e aminotr ansfera se), serum or plasma 2023 024 NOBLE [facility], [address], [place], [address], 4 08:06:52 lipid panel, serum 2023 024 [email or web address] [facility], [address], [place], [address], 4 10:50:26 TSH + free T4, serum 2023 024 NOBLE [facility], [address], [place], [address], 4 08:06:48 CBC w/ auto diff 2023 024 NOBLE [facility], [address], [place], [address], 4 08:06:50 BMP, serum or plasma 2023 024 NOBLE [facility], [address], [place], [address], 4 08:06:50 HIV 1 + 2 RNA panel, NGOC+pro be, serum or plasma 2023 024 NOBLE [facility], [address], [place], [address], 4 08:06:52 Referral None recorde d. Procedures None recorde d. Surgeries None recorde d. Imaging US, abdomen - right sided abdomin al pain. CT scan reveals kidney stones in the right kidney- but urology determi tom not the cause of right abdomin al pain [email or web address] [place] [address] (Radiology), [address] [facility], [place], [address], 4 11:35:40 XR, hip, unilate ral, 2 or 3 view - right hip/abd ominal pain 2023 024 [facility], [address], [place], [address], 15:31:07 CT, abdomen + pelvis, w/o contras t 2023 024 [email or web address] [facility], [address], [address], [place], [address], 08:58:16 Medication Orders None recorde d. Patient TargetsNo targets recorded. Patient Instructions Encounter Date Encounter Id Patient Instructions Last Modified By Organization Details Last Modified Time 11/20/2023 [id number] medical record request* Not available 11/20/2023 15:36:34 constipation: care instructions Not available 11/20/2023 13:34:37 HIV testing: car e instructions Not available 11/20/2023 13:23:15 02/12/2024 [id number] Follow up as needed. [email or web address] Not available 02/12/2024 10:01:07 12/05/2024 [id number] irritable bowel syndrome: care instructions Not available 12/05/2024 14:02:04 medical record request* Not available 12/06/2024 14:49:29 hyperparathyroid i sm: care instructions Not available 12/05/2024 14:02:05 parathyroidectom y : before your surgery Not available 12/05/2024 14:02:05 Reason for Referral None Reported. Results Created Date Observation Date Name Description Value Unit Range Abnormal Flag Note LastModifiedBy Organization Detail LastModifiedTime 02/02/20 24 02/03/2024 TSH+F REE T4 TSH 0.748 uIU/m L 0.450- 4.500 Not Available [facility] ([facility]) [address] [place], [address], 02/04/2024 08:06:48 02/02/20 24 02/03/2024 TSH+F REE T4 T4,free(dire ct) 1.40 NG/dL 0.82-1 .77 Not Available [facility] ([facility]) [address] [facility] [place], [address], 02/04/2024 08:06:48 02/02/20 24 02/03/2024 CBC WITH DIFFE RENTI AL/PL ATELE T WBC 7.7 x10e3 /uL 3.4-10 .8 Not Available [facility] ([facility]) [address] [facility], [place], [address], 02/04/2024 08:06:50 02/02/20 24 02/03/2024 CBC WITH DIFFE RENTI AL/PL ATELE T RBC 4.82 x10e6 /uL 3.77-5 .28 Not Available [facility] ([facility]) [address] [place], [address], 02/04/2024 08:06:50 02/02/20 24 02/03/2024 CBC WITH DIFFE RENTI AL/PL ATELE T hemoglobin 14.5 g/dL 11.1-1 5.9 Not Available [facility] ([facility]) [address] [facility], [place], [address], 02/04/2024 08:06:50 02/02/20 24 02/03/2024 CBC WITH DIFFE RENTI AL/PL ATELE T hematocrit 43.5 % 34.0-4 6.6 Not Available [facility] ([facility]) [address] [place], [address], 02/04/2024 08:06:50 02/02/20 24 02/03/2024 CBC WITH DIFFE RENTI AL/PL ATELE T MCV 90 fL 79-97 Not Available [facility] ([facility]) [address] [place], [address], 02/04/2024 08:06:50 02/02/20 24 02/03/2024 CBC WITH DIFFE RENTI AL/PL ATELE T MCH 30.1 pg 26.6-3 3.0 Not Available [facility] ([facility]) [address] [facility] [place], [address], 02/04/2024 08:06:50 02/02/20 24 02/03/2024 CBC WITH DIFFE RENTI AL/PL ATELE T MCHC 33.3 g/dL 31.5-3 5.7 Not Available [facility] ([facility]) [address] [facility], [place], [address], 02/04/2024 08:06:50 02/02/20 24 02/03/2024 CBC WITH DIFFE RENTI AL/PL ATELE T RDW 12.7 % 11.7-1 5.4 Not Available [facility] ([facility]) [address] [facility], [place], [address], 02/04/2024 08:06:50 02/02/20 24 02/03/2024 CBC WITH DIFFE RENTI AL/PL ATELE T platelets 280 x10e3 /uL 150-45 0 Not Available [facility] ([facility]) [address] [facility], [place], [address], 02/04/2024 08:06:50 02/02/20 24 02/03/2024 CBC WITH DIFFE RENTI AL/PL ATELE T neutrophils 72 % not estab. Not Available [facility] ([facility]) [address] [facility], [place], [address], 02/04/2024 08:06:50 02/02/20 24 02/03/2024 CBC WITH DIFFE RENTI AL/PL ATELE T lymphs 21 % not estab. Not Available [facility] ([facility]) [address] [facility], [place], [address], 02/04/2024 08:06:50 02/02/20 24 02/03/2024 CBC WITH DIFFE RENTI AL/PL ATELE T monocytes 5 % not estab. Not Available [facility] ([facility]) [address] [facility], [place], [address], 02/04/2024 08:06:50 02/02/20 24 02/03/2024 CBC WITH DIFFE RENTI AL/PL ATELE T eos 1 % not estab. Not Available [facility] ([facility]) [address] [place], [address], 02/04/2024 08:06:50 02/02/20 24 02/03/2024 CBC WITH DIFFE RENTI AL/PL ATELE T basos 1 % not estab. Not Available [facility] ([facility]) [address] [facility], [place], [address], 02/04/2024 08:06:50 02/02/20 24 02/03/2024 CBC WITH DIFFE RENTI AL/PL ATELE T immature cells TOWNSHIP CLERK Not Available [facility] ([facility]) [address] [place], [address], 02/04/2024 08:06:50 02/02/20 24 02/03/2024 CBC WITH DIFFE RENTI AL/PL ATELE T neutrophils (absolute) 5.6 x10e3 /uL 1.4-7. 0 Not Available [facility] ([facility]) [address] [place], [address], 02/04/2024 08:06:50 02/02/20 24 02/03/2024 CBC WITH DIFFE RENTI AL/PL ATELE T lymphs (absolute) 1.6 x10e3 /uL 0.7-3. 1 Not Available [facility] ([facility]) [address] [place], [address], 02/04/2024 08:06:50 02/02/20 24 02/03/2024 CBC WITH DIFFE RENTI AL/PL ATELE T monocytes(ab solute) 0.4 x10e3 /uL 0.1-0. 9 Not Available [facility] ([facility]) [address] [place], [address], 02/04/2024 08:06:50 02/02/20 24 02/03/2024 CBC WITH DIFFE RENTI AL/PL ATELE T eos (absolute) 0.1 x10e3 /uL 0.0-0. 4 Not Available [facility] ([facility]) [address] [facility], [place], [address], 02/04/2024 08:06:50 02/02/20 24 02/03/2024 CBC WITH DIFFE RENTI AL/PL ATELE T baso (absolute) 0.1 x10e3 /uL 0.0-0. 2 Not Available [facility] ([facility]) [address] [facility], [place], [address], 02/04/2024 08:06:50 02/02/20 24 02/03/2024 CBC WITH DIFFE RENTI AL/PL ATELE T immature granulocytes 0 % not estab. Not Available [facility] ([facility]) [address] [facility], [place], [address], 02/04/2024 08:06:50 02/02/20 24 02/03/2024 CBC WITH DIFFE RENTI AL/PL ATELE T immature grans (abs) 0.0 x10e3 /uL 0.0-0. 1 Not Available [facility] ([facility]) [address] [facility], [place], [address], 02/04/2024 08:06:50 02/02/20 24 02/03/2024 CBC WITH DIFFE RENTI AL/PL ATELE T NRBC TOWNSHIP CLERK Not Available [facility] ([facility]) [address] [facility], [place], [address], 02/04/2024 08:06:50 02/02/20 24 02/03/2024 CBC WITH DIFFE RENTI AL/PL ATELE T hematology comments: TOWNSHIP CLERK Not Available [facility] ([facility]) [address] [facility], [place], [address], 02/04/2024 08:06:50 02/02/20 24 02/03/2024 BASIC METAB OLIC PANEL (8) glucose 89 mg/dL 70-99 Not Available [facility] ([facility]) [address] [place], [address], 02/04/2024 08:06:50 02/02/20 24 02/03/2024 BASIC METAB OLIC PANEL (8) BUN 8 mg/dL 8-27 Not Available [facility] ([facility]) [address] [place], [address], 02/04/2024 08:06:50 02/02/20 24 02/03/2024 BASIC METAB OLIC PANEL (8) creatinine 0.56 mg/dL 0.57-1 .00 below low normal Not Available [facility] ([facility]) [address] [place], [address], 02/04/2024 08:06:50 02/02/20 24 02/03/2024 BASIC METAB OLIC PANEL (8) eGFR 103 mL/mi n/1.7 3 >59 Not Available [facility] ([facility]) [address] [place], [address], 02/04/2024 08:06:50 02/02/20 24 02/03/2024 BASIC METAB OLIC PANEL (8) BUN/creatini ne ratio 14 12-28 Not Available [facility] ([facility]) [address] [place], [address], 02/04/2024 08:06:50 02/02/20 24 02/03/2024 BASIC METAB OLIC PANEL (8) sodium 140 mmol/ L 134-14 4 Not Available [facility] ([facility]) [address] [place], [address], 02/04/2024 08:06:50 02/02/20 24 02/03/2024 BASIC METAB OLIC PANEL (8) potassium 4.4 mmol/ L 3.5-5. 2 Not Available [facility] ([facility]) [address] [place], [address], 02/04/2024 08:06:50 02/02/20 24 02/03/2024 BASIC METAB OLIC PANEL (8) chloride 104 mmol/ L 96-106 Not Available [facility] ([facility]) [address] [place], [address], 02/04/2024 08:06:50 02/02/20 24 02/03/2024 BASIC METAB OLIC PANEL (8) carbon dioxide, total 25 mmol/ L 20-29 Not Available [facility] ([facility]) [address] [place], [address], 02/04/2024 08:06:50 02/02/20 24 02/03/2024 BASIC METAB OLIC PANEL (8) calcium 9.9 mg/dL 8.7-10 .3 Not Available [facility] ([facility]) [address] [place], [address], 02/04/2024 08:06:50 02/02/20 24 02/03/2024 LIPID PANEL cholesterol, total 221 mg/dL 100-19 9 above high normal Not Available [facility] ([facility]) [address] [place], [address], 02/04/2024 08:06:51 02/02/20 24 02/03/2024 LIPID PANEL triglyceride s 144 mg/dL 0-149 Not Available [facility] ([facility]) [address] [place], [address], 02/04/2024 08:06:51 02/02/20 24 02/03/2024 LIPID PANEL HDL cholesterol 55 mg/dL >39 Not Available [facility] ([facility]) [address] [place], [address], 02/04/2024 08:06:51 02/02/20 24 02/03/2024 LIPID PANEL VLDL cholesterol luisa 26 mg/dL 5-40 Not Available [facility] ([facility]) [address] [place], [address], 02/04/2024 08:06:51 02/02/20 24 02/03/2024 LIPID PANEL LDL chol calc ([facility]) 140 mg/dL 0-99 above high normal Not Available [facility] ([facility]) [address] [place], [address], 02/04/2024 08:06:51 02/02/20 24 02/03/2024 LIPID PANEL comment: TOWNSHIP CLERK Not Available [facility] ([facility]) [address] [place], [address], 02/04/2024 08:06:51 02/02/20 24 02/03/2024 HIV-1 /HIV- 2 QUALI TATIV E RNA HIV-1 RNA NON REACTI VE non reacti ve Not Available [facility] ([facility]) [address] [place], [address], 02/04/2024 08:06:52 02/02/20 24 02/03/2024 HIV-1 /HIV- 2 QUALI TATIV E RNA HIV-2 RNA NON REACTI VE non reacti ve Not Available [facility] ([facility]) [address] [place], [address], 02/04/2024 08:06:52 02/02/20 24 02/03/2024 ALT (SGPT ) ALT (SGPT) 21 IU/L 0-32 Not Available [facility] ([facility]) [address] [place], [address], 02/04/2024 08:06:52 02/12/20 24 02/12/2024 CBC WITH DIFFE RENTI AL/PL ATELE T WBC 6.0 x10e3 /uL 3.4-10 .8 Not Available [facility] ([facility]) [address] [place], [address], 02/13/2024 06:08:26 02/12/20 24 02/12/2024 CBC WITH DIFFE RENTI AL/PL ATELE T RBC 4.74 x10e6 /uL 3.77-5 .28 Not Available [facility] ([facility]) [address] [place], [address], 02/13/2024 06:08:26 02/12/20 24 02/12/2024 CBC WITH DIFFE RENTI AL/PL ATELE T hemoglobin 13.9 g/dL 11.1-1 5.9 Not Available [facility] ([facility]) [address] [place], [address], 02/13/2024 06:08:26 02/12/20 24 02/12/2024 CBC WITH DIFFE RENTI AL/PL ATELE T hematocrit 43.8 % 34.0-4 6.6 Not Available [facility] ([facility]) [address] [place], [address], 02/13/2024 06:08:26 02/12/20 24 02/12/2024 CBC WITH DIFFE RENTI AL/PL ATELE T MCV 92 fL 79-97 Not Available [facility] ([facility]) [address] [place], [address], 02/13/2024 06:08:26 02/12/20 24 02/12/2024 CBC WITH DIFFE RENTI AL/PL ATELE T MCH 29.3 pg 26.6-3 3.0 Not Available [facility] ([facility]) [address] [place], [address], 02/13/2024 06:08:26 02/12/20 24 02/12/2024 CBC WITH DIFFE RENTI AL/PL ATELE T MCHC 31.7 g/dL 31.5-3 5.7 Not Available [facility] ([facility]) [address] [place], [address], 02/13/2024 06:08:26 02/12/20 24 02/12/2024 CBC WITH DIFFE RENTI AL/PL ATELE T RDW 12.8 % 11.7-1 5.4 Not Available [facility] ([facility]) [address] [facility], [place], [address], 02/13/2024 06:08:26 02/12/20 24 02/12/2024 CBC WITH DIFFE RENTI AL/PL ATELE T platelets 293 x10e3 /uL 150-45 0 Not Available [facility] ([facility]) [address] [facility], [place], [address], 02/13/2024 06:08:26 02/12/20 24 02/12/2024 CBC WITH DIFFE RENTI AL/PL ATELE T neutrophils 60 % not estab. Not Available [facility] ([facility]) [address] [facility], [place], [address], 02/13/2024 06:08:26 02/12/20 24 02/12/2024 CBC WITH DIFFE RENTI AL/PL ATELE T lymphs 31 % not estab. Not Available [facility] ([facility]) [address] [facility], [place], [address], 02/13/2024 06:08:26 02/12/20 24 02/12/2024 CBC WITH DIFFE RENTI AL/PL ATELE T monocytes 6 % not estab. Not Available [facility] ([facility]) [address] [facility], [place], [address], 02/13/2024 06:08:26 02/12/20 24 02/12/2024 CBC WITH DIFFE RENTI AL/PL ATELE T eos 2 % not estab. Not Available [facility] ([facility]) [address] [facility], [place], [address], 02/13/2024 06:08:26 02/12/20 24 02/12/2024 CBC WITH DIFFE RENTI AL/PL ATELE T basos 1 % not estab. Not Available [facility] ([facility]) [address] [place], [address], 02/13/2024 06:08:26 02/12/20 24 02/12/2024 CBC WITH DIFFE RENTI AL/PL ATELE T immature cells TOWNSHIP CLERK Not Available [facility] ([facility]) [address] [place], [address], 02/13/2024 06:08:26 02/12/20 24 02/12/2024 CBC WITH DIFFE RENTI AL/PL ATELE T neutrophils (absolute) 3.7 x10e3 /uL 1.4-7. 0 Not Available [facility] ([facility]) [address] [place], [address], 02/13/2024 06:08:26 02/12/20 24 02/12/2024 CBC WITH DIFFE RENTI AL/PL ATELE T lymphs (absolute) 1.8 x10e3 /uL 0.7-3. 1 Not Available [facility] ([facility]) [address] [place], [address], 02/13/2024 06:08:26 02/12/20 24 02/12/2024 CBC WITH DIFFE RENTI AL/PL ATELE T monocytes(ab solute) 0.3 x10e3 /uL 0.1-0. 9 Not Available [facility] ([facility]) [address] [place], [address], 02/13/2024 06:08:26 02/12/20 24 02/12/2024 CBC WITH DIFFE RENTI AL/PL ATELE T eos (absolute) 0.1 x10e3 /uL 0.0-0. 4 Not Available [facility] ([facility]) [address] [place], [address], 02/13/2024 06:08:26 02/12/20 24 02/12/2024 CBC WITH DIFFE RENTI AL/PL ATELE T baso (absolute) 0.1 x10e3 /uL 0.0-0. 2 Not Available [facility] ([facility]) [address] [facility], [place], [address], 02/13/2024 06:08:26 02/12/20 24 02/12/2024 CBC WITH DIFFE RENTI AL/PL ATELE T immature granulocytes 0 % not estab. Not Available [facility] ([facility]) [address] [facility], [place], [address], 02/13/2024 06:08:26 02/12/20 24 02/12/2024 CBC WITH DIFFE RENTI AL/PL ATELE T immature grans (abs) 0.0 x10e3 /uL 0.0-0. 1 Not Available [facility] ([facility]) [address] [facility], [place], [address], 02/13/2024 06:08:26 02/12/20 24 02/12/2024 CBC WITH DIFFE RENTI AL/PL ATELE T NRBC TOWNSHIP CLERK Not Available [facility] ([facility]) [address] [facility], [place], [address], 02/13/2024 06:08:26 02/12/20 24 02/12/2024 CBC WITH DIFFE RENTI AL/PL ATELE T hematology comments: TOWNSHIP CLERK Not Available [facility] ([facility]) [address] [facility], [place], [address], 02/13/2024 06:08:26 02/12/20 24 02/12/2024 BASIC METAB OLIC PANEL (8) glucose 92 mg/dL 70-99 Not Available [facility] ([facility]) [address] [place], [address], 02/13/2024 06:08:26 02/12/20 24 02/12/2024 BASIC METAB OLIC PANEL (8) BUN 10 mg/dL 8-27 Not Available [facility] ([facility]) [address] [facility], [address], 02/13/2024 06:08:26 02/12/20 24 02/12/2024 BASIC METAB OLIC PANEL (8) creatinine 0.59 mg/dL 0.57-1 .00 Not Available [facility] ([facility]) [address] [facility] [place], [address], 02/13/2024 06:08:26 02/12/20 24 02/12/2024 BASIC METAB OLIC PANEL (8) eGFR 102 mL/mi n/1.7 3 >59 Not Available [facility] ([facility]) [address] [place], [address], 02/13/2024 06:08:26 02/12/20 24 02/12/2024 BASIC METAB OLIC PANEL (8) BUN/creatini ne ratio 17 12-28 Not Available [facility] ([facility]) [address] [facility] [place], [address], 02/13/2024 06:08:26 02/12/20 24 02/12/2024 BASIC METAB OLIC PANEL (8) sodium 141 mmol/ L 134-14 4 Not Available [facility] ([facility]) [address] [place], [address], 02/13/2024 06:08:26 02/12/20 24 02/12/2024 BASIC METAB OLIC PANEL (8) potassium 4.3 mmol/ L 3.5-5. 2 Not Available [facility] ([facility]) [address] [place], [address], 02/13/2024 06:08:26 02/12/20 24 02/12/2024 BASIC METAB OLIC PANEL (8) chloride 106 mmol/ L 96-106 Not Available [facility] ([facility]) [address] [place], [address], 02/13/2024 06:08:26 02/12/20 24 02/12/2024 BASIC METAB OLIC PANEL (8) carbon dioxide, total 23 mmol/ L 20-29 Not Available [facility] ([facility]) [address] [facility], [place], [address], 02/13/2024 06:08:26 02/12/20 24 02/12/2024 BASIC METAB OLIC PANEL (8) calcium 9.7 mg/dL 8.7-10 .3 Not Available [facility] ([facility]) [address] [facility], [place], [address], 02/13/2024 06:08:26 10/21/19 25 10/21/2024 CULTU RE URINE .note See Note Origi nal Order ing Provi lamonte: OLGA LIDIA SHELTONA GOGOJ [facility] - [address], [facility] [place] [id number] Not Available [address], [address], 10/23/2024 09:39:30 10/21/19 25 10/21/2024 CULTU RE URINE culture, urine No growth Not Available [address], [address], 10/23/2024 09:39:30 10/21/19 25 10/21/2024 CULTU RE URINE .note See Note Origi nal Order ing Provi lamonte: OLGA LIDIA CHONG PATRY CJA GOGOJ [facility] - [address], [facility] [place] [id number] Not Available [address], [address], 10/22/2024 07:33:14 10/21/19 25 10/21/2024 CULTU RE URINE culture, urine No growth Not Available [facility] [address], [address], 10/22/2024 07:33:14 10/21/19 25 10/21/2024 STONE GUERRERO SIS component(s) See below 97% Calci um oxala te monoh ydrat e (Whew ellit e) 3% Uric acid anhyd kim Not Available [address], [address], 10/24/2024 15:33:20 10/21/19 25 10/21/2024 STONE GUERRERO SIS stone weight 0.0220 g This test was devel oped and its perfo rmanc e gerald cteri stics deter mined by [facility] in a tim r consi stent with JERRY augustin ts. This test has not been clear ed or appro sandee by the U.S. Food and Drug Admin istra tion. Test perfo rmed at [facility] , [address], [place] [address] [phone] Medina norman MD, PhD - Medic al Direc tor Not Available [address], [address], 10/24/2024 15:33:20 10/21/19 25 10/21/2024 STONE GUERRERO SIS note See Report [facility], [address], [address], [place] [address] Not Available [address], [address], 10/24/2024 15:33:20 12/06/19 23 09/26/2022 CT, abdom en + [...] COMPAR LUDY: CT from 005 FINDIN GS: Foreign Banknote Teller View Findin gs, Lines and Tubes: None. [...] or curvil inear enhanc ement along its geological engineer ior wall (601:5 1). There is short [...] attenu ation materi al within the stomac h.[place] n is partia lly opacif ied by [...] hypera ttenua ting materi al along its geological engineer ior lumen probab ly repres enting enteri [...] eddy) has been commun icated via the [employer] system on 12/13/19 23 5:24 PM, Geronimo boateng ID [id number] 1. I have person ally review ed the images and I agree with this report . WSN: [id number] Orderi ng Physic deepa: Nate nixon MD, Antonia E Dictat ed By: Quique redding MD, Marcelino Dean Dictat ed Date/T will: 5:25 pm Review ed By: Tony gore MD, Leonard Black Signed By: Tony gore MD, Leonard Black Signed Date/T will: 5:30 pm Transc ribed By: EDGARD Transc ribed Date/T will: 4:05 pm Patien t Class: Outpat ient [email or web address] [facility] ([facility]) [address] [facility], [place], [address], 12/13/2022 10:25:52 09/06/20 23 08/23/2023 MAMMO , scree pretty, digit al, bilat eral No observ ation record ed. [facility] [address] [place] [address] [place], [address], 09/06/2023 10:29:22 11/20/19 24 09/28/2023 bone densi ty No observ ation record ed. [email or web address] Not Available 2023 10:01:37 02/12/20 24 02/12/2024 CT, abdom en, w/o contr ast No observ ation record ed. [facility] [address] [facility] [address], [place], [address], 02/13/2024 11:04:29 02/22/20 24 02/22/2024 XR, hip, [...] seen involv ing the right hip. WSN: [id number] Orderi ng Physic deepa: Rosibel Rodriguez Y Dictat ed By: Kwasi Yoo MD, V Dictat ed Date/T will: 3:28 pm Review ed By: Delmi badillo MD, Kwasi Cazares Signed By: Kwasi Yoo MD, V Signed Date/T will: 3:28 pm Transc ribed By: EDGARD Transc ribed Date/T will: 3:27 pm Patien t Class: Outpat ient [facility] (Outpt Imaging) [address] [place], [address], 02/23/2024 09:26:07 02/22/20 24 02/22/2024 XR, hip, unila teral , 2 or 3 view No observ ation record ed. [email or web address] [facility] [address] [facility], [place], [address], 02/23/2024 09:26:43 03/03/20 24 03/02/2024 US, abdom [...] No cause identi fied for pain. WSN: [id number] Orderi ng Physic deepa: Rosibel Rodriguez Y Dictat ed By: Leonard Sanches MD Dictat ed Date/T will: 10:20 a Review ed By: Myron ROMO, Leonard pleitez Signed By: Leonard Sanches MD Signed Date/T will: 10:20 am Transc ribed By: EDGARD Transc ribed Date/T will: 10:13 am Patidelfina t Class: Outpat ient [facility] (Outpt Imaging) [address] [facility], [place], [address], 03/07/2024 12:40:24 03/03/20 24 03/02/2024 US, abdom en No observ ation record ed. [email or web address] Not Available 2023 09:50:56 10/01/19 25 09/23/2024 MAMMO , scree pretty, digit al, bilat eral No observ ation record ed. [facility] (Mammo) [address] [place] [address] [place], [address], 10/02/2024 15:42:32 10/21/19 25 10/21/2024 xr urogr am retro grade See Note [facility] , a member of [employer] Patien t Name: CAITLYN PARR TORIBIO Date of : 1959 Reason for Exam: pain Exam Date: 2024 144026 EST Report Status : Final Orderi ng Provid er: JONO HICKS PCP: MARTHA MARTIN Fluoro scopic spot radiog raphs obtain ed during a right endour ologic proced ure are submit sven. No radiol ogist consul tation was reques sven or provid ed during this proced ure and there is no radiol ogist profes sional charge . This report is genera sven for docume ntatio n purpos es only. The dose-a hussain produc t for this proced ure was 1.0560 Gy*cm2 . PQRI CPT II G9500 ------ -- FINAL REPORT ------ -- Dictat ed By: Domingo Quinones Dictat ed Date: 2024 10:02 ET Assign ed Physic deepa: Domingo Quinones Review ed and Electr onical ly Signed By: Domingo Quinones Signed Date: 2024 10:02 ET Workst ation ID: [id number] Transc ribed By: Self Edit Transc ribed Date: 2024 10:[address], [address], 10/21/2024 12:12:58 Result Notes Documentation Provider Name and Address Organization Details Recorded Time Xr, Hip, Unilateral, 2 Or 3 View : Hip Comp 2 Views Right Reason: hip pain COMPARISON: None. FINDINGS: No fracture or dislocation. Well preserved joint space. Normal femoral head contour without evidence of avascular necrosis. Normal soft tissues. Multiple phleboliths of different sizes in the right pelvis. IMPRESSION: No acute fracture or dislocation is seen involving the right hip. WSN: [id number] Ordering Physician: Rosibel Rodriguez Dictated By: Kwasi Brar MD, V Dictated Date/Time: 02/22/24 3:28 pm Reviewed By: Kwasi Brar MD, V Signed By: Kwasi Brar MD, V Signed Date/Time: 02/22/24 3:28 pm Transcribed By: EDGARD Transcribed Date/Time: 02/22/24 3:27 pm Patient Class: Outpatient [facility] [address] [facility] [address], [place], [address], [facility] 02/23/2024 08:37:44 Problems Name Problem SNOMED Code Status Onset Date Resolution Date Notes Provider Name and Address Organization Details Recorded Time Hypercho lesterol emia 33561132 Completed 03/23/2018 Antonia vaz [facility] 0 15:44:34 Fatigue 05807290 Completed 03/23/2018 Antonia vaz [facility] 8 14:52:17 Dysfunct ional uterine bleeding Active Елена vaz [facility] 6 09:31:12 Dysphagi a 87658845 Completed 03/23/2018 Antonia vaz [facility] 8 14:52:02 Injury of head 71668062 Completed 03/23/2018 Antonia vaz [facility] 8 14:52:14 Neck pain 38581780 Completed 03/23/2018 Antonia vaz [facility] 8 14:52:10 Adult health examinat ion Completed 201104/21/2014 IMPRESSI ON: PT TO 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 PAP AND MAMMO UTD PT WILL SET UP COLONOSC OPY; RECORDED 09/06/20 12 1:37PM BY ESTEBAN AGUIRRE ON/ADDEN DUM Елена Benitez null, [facility] 6 09:31:12 Screenin g for malignan t neoplasm of breast Completed 201103/25/2014 RECORDED 09/06/20 12 1:37PM BY ESTEBAN AGUIRRE ON/ADDEN DUM Елена Benitez null, [facility] 6 09:31:12 Angina pectoris 682095974 Completed 201204/21/2014 RECORDED 10/15/19 13 1:39AM BY ESTEBAN AGUIRRE ON/ADDEN DUM Елена Benitez null, [facility] 6 09:31:12 Essentia l hyperten derick 26967920 Completed 201204/21/2014 RECORDED 10/15/19 13 1:39AM BY ESTEBAN AGUIRRE ON/ADDEN DUM Елена Benitez null, [facility] 6 09:31:12 Acute myocardi al infarcti on 98029409 Completed 201204/21/2014 RECORDED 10/15/19 13 1:39AM BY ESTEBAN AGUIRRE ON/ADDEN DUM Елена Benitez null, [facility] 6 09:31:12 Osteopor osis 67488723 Completed 201204/21/2014 RECORDED 10/15/19 13 1:39AM BY ESTEBAN AGUIRRE ON/ADDEN DUM Елена Benitez null, [facility] 6 09:31:12 Angina pectoris 034793482 Completed 201203/25/2014 RECORDED 10/15/19 13 1:39AM BY ESTEBAN AGUIRRE ON/ADDEN DUM Елена Benitez null, [facility] 6 09:31:12 Essentia l hyperten derick 18130932 Completed 201203/25/2014 RECORDED 10/15/19 13 1:39AM BY ESTEBAN AGUIRRE ON/ADDEN DUM Елена Benitez null, [facility] 6 09:31:12 Acute myocardi al infarcti on 37473612 Completed 201203/25/2014 RECORDED 10/15/19 13 1:39AM BY ESTEBAN AGUIRRE ON/ADDEN DUM Елена Benitez null, [facility] 6 09:31:12 Osteopor osis 91001592 Completed 201203/25/2014 RECORDED 10/15/19 13 1:39AM BY ESTEBAN AGUIRRE ON/ADDEN DUM Елена Benitez null, [facility] 6 09:31:12 Screenin g for malignan t neoplasm of colon Completed 201204/21/2014 IMPRESSI ON: PT TO SET UP APPT; RECORDED 09/05/20 13 12:50PM BY JANICE BOWEN MA, ANNOTATI ON/ADDEN DUM Еленаelieser Benitez null, [facility] 6 09:31:12 Cough 52540841 Completed 201204/21/2014 IMPRESSI ON: SPOKE TO TP TODAY COUGHIS HORRIBLE NO REST, GREEN NASAL DISCAHRG E TX WITH ABX ND PREDNISO NE; RECORDED 09/05/20 13 12:50PM BY JANICE BOWEN MA, ANNOTATI ON/ADDEN DUM Еленаelieser Benitez null, [facility] 6 09:31:12 Dysfunct ional uterine bleeding Completed 201204/21/2014 IMPRESSI ON: JSUT HAD UTERINE ABLATION ; RECORDED 09/05/20 13 12:50PM BY JANICE BOWEN MA, ANNOTATI ON/ADDEN DUM Еленаlaxmi Benitez null, [facility] 6 09:31:12 Malaise and fatigue 478186517 Completed 201204/21/2014 RECORDED 09/05/20 13 12:50PM BY JANICE BOWEN MA, ANNOTATI ON/ADDEN DUM Елена Benitez null, [facility] 6 09:31:12 Chronic sinusiti s 81498017 Completed 201204/21/2014 RECORDED 09/05/20 13 12:50PM BY JANICE BOWEN MA, ESTEBAN ON/ADDEN DUM Елена Benitez null, [facility] 6 09:31:12 Administ ration of diphther ia, pertussi s, and tetanus vaccine Completed 201204/21/2014 RECORDED 09/05/20 13 12:50PM BY JANICE BOWEN MA, OPALATI ON/ADDEN DUM Елена Benitez null, [facility] 6 09:31:12 Viral disease 80594258 Completed 201204/21/2014 IMPRESSI ON: RESOLVIN G FLU, HAS HAD IT FOR 4 DAYS, NO ABX OR ANTIVIRA LS NEEDED.; RECORDED 09/05/20 13 12:50PM BY JANICE BOWEN MA, ESTEBAN ON/ADDEN DUM Елена Benitez null [facility] 6 09:31:12 Administ ration of viral vaccine Completed 201204/21/2014 RECORDED 09/05/20 13 12:50PM BY JANICE BOWEN MA, ESTEBAN ON/ADDEN DUM Елена Emmanuel vaz [facility] 6 09:31:12 Screenin g for malignan t neoplasm of colon Completed 201203/25/2014 IMPRESSI ON: PT TO SET UP APPT; RECORDED 09/05/20 13 12:50PM BY JANICE BOWEN MA, ESTEBAN ON/ADDEN DUM Еленаlaxmi vaz [facility] 6 09:31:12 Cough 84781431 Completed 201203/25/2014 IMPRESSI ON: SPOKE TO TP TODAY COUGHIS HORRIBLE NO REST, GREEN NASAL DISCAHRG E TX WITH ABX ND PREDNISO NE; RECORDED 09/05/20 13 12:50PM BY JANICE BOWEN MA, ANNOTATI ON/ADDEN DUM Елена Benitez null, [facility] 6 09:31:12 Dysfunct ional uterine bleeding Completed 201203/25/2014 IMPRESSI ON: JSUT HAD UTERINE ABLATION ; RECORDED 09/05/20 13 12:50PM BY JANICE BOWEN MA, OPALATI ON/ADDEN DUM Елена Benitez null, [facility] 6 09:31:12 Malaise and fatigue 204067089 Completed 201203/25/2014 RECORDED 09/05/20 13 12:50PM BY JANICE BOWEN MA, ANNOTATI ON/ADDEN DUM Елена Benitez null, [facility] 6 09:31:12 Chronic sinusiti s 60445819 Completed 201203/25/2014 RECORDED 09/05/20 13 12:50PM BY JANICE BOWEN MA, ANNOTATI ON/ADDEN DUM Елена Benitez null, [facility] 6 09:31:12 Administ ration of diphther ia, pertussi s, and tetanus vaccine Completed 201203/25/2014 RECORDED 09/05/20 13 12:50PM BY JANICE BOWEN MA, ESTEBAN ON/ADDEN DUM Елена Benitez null, [facility] 6 09:31:12 Viral disease 69106365 Completed 201203/25/2014 IMPRESSI ON: RESOLVIN G FLU, HAS HAD IT FOR 4 DAYS, NO ABX OR ANTIVIRA LS NEEDED.; RECORDED 09/05/20 13 12:50PM BY JANICE BOWEN MA, ESTEBAN ON/ADDEN DUM Елена Benitez null, [facility] 6 09:31:12 Administ ration of viral vaccine Completed 201203/25/2014 RECORDED 09/05/20 13 12:50PM BY JANICE BOWEN MA, ANNOTNETO ON/ADDEN DUM Елена Benitez null, [facility] 6 09:31:12 Screenin g for malignan t neoplasm of cervix Completed 201304/21/2014 RECORDED 01/22/20 14 4:26PM BY JANICE BOWEN MA, OPALATI ON/ADDEN DUM Елена vaz [facility] 6 09:31:12 Disorder of skin and/or subcutan eous tissue 97052470 Completed 201304/21/2014 IMPRESSI ON: SEEMS LIKE A SMALL BENIGN CYST, NO TX UNLESS ENLARGES , BECOMES RED OR INFLAMED , THEN PT TO DERMATOL OGY; RECORDED 01/22/20 14 4:26PM BY JANICE BOWEN MA, ESTEBAN ON/ADDEN DUM Елена vaz [facility] 6 09:31:12 Abnormal findings on diagnost ic imaging of skull and head 885065692 Completed 201303/23/2018 HAD MRIS FOR YEARS, LAST MRI OF BRAIN MANY YEARS AGO; RECORDED 01/22/20 14 4:26PM BY JANICE BOWEN MA, OFFICE VISIT Antonia vaz [facility] 8 14:51:54 Screenin g for malignan t neoplasm of cervix Completed 201303/25/2014 RECORDED 01/22/20 14 4:26PM BY JANICE BOWEN MA, ESTEBAN ON/ADDEN DUM Елена vaz [facility] 6 09:31:12 Displace ment of interver tebral disc without myelopat hy 73908808 Completed 201303/23/2018 L4L5 Antonia boswellenzo milind [facility] 8 14:52:08 Pure hypercho lesterol emia 768632464 Completed 201303/23/2018 Antonia boswellenzo milind [facility] 8 14:51:47 Migraine 69854903 Active 2013 Елена vaz [facility] 6 09:31:12 Patient status finding 084089371 Completed 201312/15/[facility] 13:25[facility]12 Disorder of skin and/or subcutan eous tissue 88846595 Completed 201303/25/2014 IMPRESSI ON: SEEMS LIKE A SMALL BENIGN CYST, NO TX UNLESS ENLARGES , BECOMES RED OR INFLAMED , THEN PT TO DERMATOL OGY; RECORDED 01/22/20 14 4:26PM BY JANICE BOWEN MA, ANNOTATI ON/ADDEN DUM Елена vaz [facility] 6 09:31:12 Cardiova scular system problem 179696129 Completed 201303/23/2018 Antonia Glading-[facility]vana [facility] 8 14:51:57 Tinnitus 71354001 Completed 201303/23/2018 Antonia Glading-Di k[facility] 8 14:52:04 Bilatera l carpal tunnel syndrome 54552242406 762910 Active 2019 Antonia Glading-Di k[facility] 0 15:43:08 Hyperpar athyroid ism 72228796 Active 2019 Antonia Glading-Silvana [facility] 0 15:44:28 Hypercho lesterol emia 08801227 Active 2019 Antonia Glading-Di k[facility] 0 15:44:34 Osteopen ia 379778128 Active 2023 JAIMIE Aguirre [facility] 4 12:53:28 Vitamin D deficien cy 32675180 Active 2023 JAIMIE Aguirre [facility] 4 12:53:29 History of parathyr oidectom y 89661592578 9103 Active 2023 Michelle Boyce MA null, [facility] 4 12:53:29 History of calculus of kidney 000656571 Active 2023 SUHAS PRICE MD [address], [place], [address] , [facility] 4 09:44:12 Calculus of kidney and ureter 152852388 Completed 202312/05/2024 SUHAS PRICE MD [address], [place], [address] , [facility] 5 13:52:56 Constipa tion 21241905 Active 2023 Jaylon Westfall PA-C [address], [place], [address] , [facility] 4 10:09:37 Problem Notes None recorded. Procedures Surgical History Date Name Laterality Status Provider Name and Address Organization Details Recorded Time 025 cystoscopy completed Symone Cespedes [facility] 10/22/2024 10:12:59 025 ureteroscopy completed Symone Cespedes [facility] 10/22/2024 10:13:13 025 lithotripsy completed Symone Cespedes [facility] 10/22/2024 10:13:29 025 insertion of stent into ureter completed Symone Cespedes [facility] 10/22/2024 10:14:03 023 Date of Last Pap Smear completed Michelle Boyce MA [facility] 11/20/2023 13:05:43 022 Most Recent Mammogram completed Symone Cespedes [facility] 08/18/2022 14:17:22 021 Dxa bone density bria vrt fx completed Symone Cespedes [facility] 09/21/2022 12:56:48 020 parathyroidectomy completed Alejandra Tadeo [facility] 02/28/2020 10:03:19 020 parathyroidectomy completed Елена Emmanuel [facility] 09/22/2020 11:14:40 019 Mammogram both breasts completed Alejandrahaylee Tadeo [facility] 12/31/2018 16:52:34 019 Ultrasound breast limited completed Alejandrahaylee Tadeo [facility] 12/31/2018 16:54:37 017 Mammogram one breast completed Estefani Montana [facility] 06/12/2017 13:17:33 017 Ultrasound breast limited completed Maggie Wen [facility] 12/26/2016 15:02:28 016 Mammogram Diagnostic Bilateral completed Елена Benitez [facility] 11/25/2015 09:29:40 015 Date of Last Colonoscopy completed Michelle Boyce MA [facility] 03/23/2018 14:33:40 015 EGD completed Maribel Suarez MA [facility] 09/30/2015 16:03:15 013 Dilation and Curettage completed Michelle Boyce MA [facility] 05/29/2015 09:18:19 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 Procedure Notes None recorded. Medical Equipment None Reported. Allergies Allergen ID Allergen Name Allergen Category Reaction Reaction Severity Criticality Documentation Date Start Date Code Code System Note Provider Name and Address Organization Details Recorded Time 78673 No known allergy (situatio n) Not available Not available Not available Not available 11/20/2023 76557 6003 SNOMED JAIMIE Aguirre [facility] 4 12:53:38 No known drug allergies Medications Name Sig Start Date Stop Date Status Note LastModified by Organization Details LastModified Time amoxicill in 500 mg capsule TAKE 1 CAPSULE BY MOUTH 4 TIMES A DAY UNTIL GONE 12/05 completed Not Available Not Available Not Available valacyclo vir 1 gram tablet Take 1 tablet every 8 hours by oral route for 7 days. 07/16 completed Not Available Not Available Not Available meloxicam 15 mg tablet TAKE 1 TABLET BY MOUTH ONCE A DAY. TAKE WITH FOOD OR MILK (OR IMMEDIAT KAY AFTER). 02/15 completed Not Available Not Available Not Available phenazopy ridine 200 mg tablet TAKE 1 TABLET (200 MG TOTAL) BY MOUTH 3 (THREE) TIMES A DAY IF NEEDED (DYSURIA ) FOR UP TO 10 DOSES. 12/05 completed Not Available Not Available Not Available [...] completed Not Available Not Available Not Available tamsulosi n 0.4 mg capsule TAKE 1 CAPSULE BY MOUTH ONCE A DAY FOR 30 DOSES. 12/05 completed Not Available Not Available Not Available [...] 05/07/20 13 9:04AM BY MICHELLE BOYCE, OFFICE VISIT; Not Available Not Available [...] Not Available Not Available No t Available oxybutyni n chloride 5 mg tablet TAKE 1 TABLET BY MOUTH 3 TIMES A DAY IF NEEDED FOR SPASMS FOR UP TO 20 DOSES. 12/05 completed Not Available Not Available Not Available diazepam 5 mg tablet TAKE 1 TABLET BY MOUTH EVERY DAY NEEDED 12/05 completed Not Available Not Available Not Available oxycodone 5 mg tablet TAKE 1 TABLET BY MOUTH EVERY 6 HOURS IF NEEDED FOR SEVERE PAIN MAX 4 TABS/DAY 12/05 completed Not Available Not Available Not Available [...] Pulse oximetry Heart rate Body temperature Systolic And Diastolic Provider Name and Address Organization Details Last Updated DateTime 4 154.94 cm 26.9 kg/m2 31575.5 2 g 98 % 98 % 82 /min 98.2 [degF] 123/76 mm[Hg] Michelle Boyce MA [facility] 4 13:03:07 Date Recorded Body height Body mass index (BMI) Body weight Oxygen saturation Oxygen saturation in Arterial blood by Pulse oximetry Heart rate Body temperature Systolic And Diastolic Provider Name and Address Organization Details Last Updated DateTime 5 154.94 cm 26.1 kg/m2 83415.7 5 g 98 % 98 % 80 /min 98.1 [degF] 113/72 mm[Hg] Michelle Boyce MA [facility] 5 13:47:02 Date Recorded Body height Provider Name an d Address Organization Details Last Updated DateTime 01/04/2023 154.94 cm Rhea Smith MA [facility] 01/04/2023 15:19:21 Date Recorded Body height Body mass index (BMI) Body weight Heart rate Oxygen saturation Oxygen saturation in Arterial blood by Pulse oximetry Body temperature Systolic And Diastolic Provider Name and Address Organization Details Last Updated DateTime 4 154.94 cm 26.6 kg/m2 58105.5 2 g 74 /min 98 % 98 % 98.3 [degF] 135/84 mm[Hg] Camille Valdes MA [facility] 4 09:17:58 Date Recorded Body height Body mass index (BMI) Body weight Heart rate Oxygen saturation Oxygen saturation in Arterial blood by Pulse oximetry Body temperature Systolic And Diastolic Provider Name and Address Organization Details Last Updated DateTime 4 154.94 cm 26.6 kg/m2 83391.5 2 g 74 /min 99 % 99 % 99.8 [degF] 134/76 mm[Hg] Angela Lake LPN [facility] 4 14:28:35 Social History Question Answer Notes LastModified by Organizat ion Details LastModified Time Tobacco Smoking Status Never Smoker Michelle Boyce MA null, [facility] 05/14/2014 09:15:01 Is Blood Transfusion Acceptable In An Emergency? Yes [email or web address] Information not available 05/29/2015 What Is Your Level Of Caffeine Consumption? Occasional [email or web address] Information not available 05/14/2014 What Type Of Diet Are You Following? REGULAR [email or web address] Information not available 05/14/2014 Are There Any Guns Present In Your Home? Yes Information not available 02/15/2021 Live Alone Or With Others? With Others Lashae Wallace [email or web address] Information not available 05/02/2019 Do You Take Precautions To Prevent Distracted Driving? Yes Information not available 05/29/2015 How Often Do You Need To Have Someone Help You When You Read Instructions, Pamphlets, Or Other Written Material From Your Doctor Or Pharmacy? Never Information not available 05/29/2015 Have You Served In The ? No [email or web address] Information not available 12/15/2016 Have You Or Anyone In Your Household Had Any Of The Following Symptoms In The Last 14 Days: Sore Throat, Cough, Chills, Body Aches For Unknown Reasons, Shortness Of Breath For Unknown Reasons, Loss Of Smell, Loss Of Taste, Fever At Or Greater Than 100 Degrees Fahrenheit? No Information not available 06/11/2020 Are You Or Anyone In Your Household A Health Care Provider Or Emergency Responder? No [email or web address] Information not available 06/11/2020 To The Best [...] OUD But Is Possibly At Risk. No [email or web address] Information not available 11/20/2023 Have You Recently Traveled To A COVID-19 High Risk Area Or Gathering In The Last 10 Days? No [email or web address] Information not available 07/16/2021 What Was The Date Of Your Most Recent Tobacco Screening? 12/05/2024 [email or web address] Information not available 12/05/2024 How Many Children Do You Have? 2 [email or web address] Information not available 05/02/2019 What Is Your Relationship Status? Information not available 02/15/2021 Seat Belts Used Routinely Yes [email or web address] Information not available 05/14/2014 Are You Sexually Active? Yes [email or web address] Information not available 05/02/2019 Smoke Alarm In Home Yes Information not available 05/14/2014 Are You Passively Exposed To Smoke? No [email or web address] Information not available 11/20/2023 How Much Tobacco Do You Smoke? No [email or web address] Information not available 09/30/2015 General Stress Level Low [email or web address] Information not available 11/20/2023 Do You Use Sunscreen Routinely? Yes [email or web address] Information not available 05/14/2014 Sex: Unknown Functional Status Question Answer Note LastModified by Organizat ion Details LastModified Time What is your level of alcohol consumption? Occasional [email or web address] Information not available 05/14/2014 Do you or have you ever used smokeless tobacco? Never used smokeless tobacco [email or web address] Information not available 05/02/2019 Are you currently employed? Yes [email or web address] Information not available 05/14/2014 Are you able to walk? YESWOREST [email or web address] Information not available 07/16/2021 Are you able to care for yourself? Yes [email or web address] Information not available 05/14/2014 Do you or have you ever used e-cigarettes or vape? Never used electronic cigarettes Information not available 02/15/2021 What is your exercise level? None [email or web address] Information not available 07/16/2021 Mental Status None recorded. Family History Relationship Description Onset Age of this Age Resolved Age Notes LastModified by Organization Details LastModified Time Mother Hypertensive disorder [email or web address] Not available 06/11 15:05:25 Mother Alzheimer's disease [email or web address] Not available 11/19 13:04:34 Father Myocardial infarction 85 [email or web address] Not available 02/15 15:02:55 Father Heart disease [email or web address] Not available 06/11 15:05:25 Unspecified Relation Migraine [email or web address] Not available 06/11 15:05:25 Unspecified Relation Malignant tumor of breast [email or web address] Not available 06/11 15:05:25 Notes:No FH of breast or col on cancer Medical History Condition Response Coronary Artery Disease N Gout N Other N Blood Diseases N Kidney Stones Y Hyperthyroidism N Breast Cancer N mrsa exposure N Lung Disease N COPD N Depression N Hypothyroidism N Defects or Inherited Disease N Developmental or Behavioral Disorders N Breast Problem N Anesthesia Complications N Headaches/Migraines Y Anxiety Disorder N Varicose Veins N Muscle, Joint, or Bone Problems N Obesity N Vision or Eye Problems Y Arthritis N Head Injury/Concussion N Polyps Y Infertility N Mental Disorder N Congenital Anomalies N Acid Reflux (GERD) N Cancer N Stroke N ADHD N Endometriosis N High Cholesterol N Liver Disease N Fibromyalgia N Headaches N Kidney Disease N Heart Problems N Ear or Hearing Problems N Hospitalizations N Thyroid Problems N GI Problems N Developmental Delay N Acne N Eating Disorder N Skin Problems N Anemia N Constipation Y Bladder Problems N Mental Illness N Diabetes N Ovarian Cancer N Bedwetting N Blood Transfusions N Heart Problems/Murmur N Seizures/Epilepsy N Tuberculosis N AIDS/HIV N Congestive Heart Failure (CHF) N Eczema N Abuse/Domestic Violence N Diverticulitis N Asthma N Allergies N Reflux/GERD N [...] 50 mcg/0.25mL dose 09/23/2020 completed JAIMIE Aguirre [facility] 07/16/2021 11:18:39 COVID-19, mRNA, LNP-S, PF, 100 mcg/0.5mL dose or 50 mcg/0.25mL dose 10/21/2020 completed JAIMIE Aguirre [facility] 07/16/2021 11:19:18 COVID-19, mRNA, LNP-S, PF, 100 mcg/0.5mL dose or 50 mcg/0.25mL dose 07/08/2021 completed JAIMIE Burch [facility] 02/12/2024 09:13:58 COVID-19, mRNA, LNP-S, bivalent, PF, 50 mcg/0.5 mL or 25mcg/0.25 mL dose 07/07/2022 completed JAIMIE Aguirre [facility] 12/02/2022 09:12:52 COVID-19, mRNA, LNP-S, PF, 50 mcg/0.5 mL 08/14/2023 completed JAIMIE Aguirre [facility] 11/20/2023 12:52:57 Tdap 05/07/2013 completed Not Available [facility] 03/25/2014 13:45:11 Past Encounters Encounter ID Performer Location Encounter Start Date Encounter Closed Date Diagnosis/Indication Diagnosis SNOMED-CT Code Diagnosis ICD10 Code Diagnosis Note [id number] [facility] [address] [place], [place] [address] 04/16/2012 00:00:00 [id number] [facility] [address] [address] [place], JA[place] [address] 09/06/2012 00:00:00 [id number] [facility] [facility] [address] [facility],[address] [place], [place] [address] 05/07/2013 00:00:00 [id number] [facility] [facility] [address] [facility],[address] [place], [place] [address] 09/05/2013 00:00:00 [id number] [employer] [facility] [address] [facility],[address] [place], [place] [address] 01/21/2014 00:00:00 [id number] Antonia jones MD Main Office [address] [place] [address] 05/14/2014 09:05:33 05/14/2014 09:52:49 Adult health examination [id number] pt is utd on her mammogram and pap smear. She is feeling well, hears a whooshing sound when she turns her head to the right, no weaknessor othe symptoms, she will set up a colonoscop y. Migraine 03903542 pt see s her neurologis t and al is well, migraines well controlled . Hypercholesterolemia 04403597 never had will check fasting today Fatigue 81852218 fatigue [id number] Antonia jones MD Main Office [address] [facility] [address] [place] [address] 05/29/2015 09:03:05 05/29/2015 09:53:45 Adult health examination [id number] utd on papa dn mammogram, I urged her to get colonoscop y which she will call for Screening for malignant neoplasm of colon 878443826 pt to set up appt Migraine 20440587 pt see s her neurologis t and al is well, migraines well controlled . Dysfunctio nal uterine bleeding 61384216 learning developer doing a workup Dysphagia 57410821 see h x, intermitta nt, ? GERD related ro anxiety, will tx with PPI, if not better needs to get EGD with Dr Bustamante, pt will set up appt,s he knows not to ignore symptoms, if not fully resolved needs GI eval [id number] Antonia jones MD Main Office [address] [address] 09/30/2015 15:43:04 09/30/2015 16:39:42 Dysphagia 82778420 R13.10 nl EGD and colonoscop y, most likely related to some anxiety, mostly resolved and is very transient, if any worsening or new symptoms return, work on relaxation [id number] Antonia jones MD Main Office [address] [address] 05/23/2016 09:54:25 05/23/2016 10:42:30 Injury of head 87945683 S09.90XA see above, no LOC, return inf any worsening, dizziness, vision change or vomiting and lethargy Fall W19.XXXA see above Neck pain 90834871 M54.2 due to head trauma, nl exam, treat with motrin and flexeril [id number] Antonia jones MD Main Office [address] [address] 12/15/2016 13:17:31 12/15/2016 14:06:40 Adult health examination 687506720 Z00.00 utd on pap and mammogram, pt is utd on colonoscop y Alopecia 70159063 L65.9 on rogaine shampoo, most likely due to hormones Neck pain 21702716 M54.2 use gabapentin as needed Migraine 33620137 G43.90 9 pt sees her neurologis t and al is well, migraines well controlled . [id number] Antonia jones MD Main Office [address] [address] 11/24/2017 10:50:18 11/24/2017 11:51:46 Constipation 07708870 K59.00 new to pt, will do a clean out with miralax, bid until loose BM then qd then qod, if not getting resolution or constipati on returns will refer to GI . colonoscop y 2 years ago, pt is aware [id number] Antonia jones MD Main Office [address] [facility] [address] [place] [address] 03/23/2018 14:25:21 03/23/2018 15:13:58 Adult health examination 525643574 Z00.00 utd on pap and mammogram, pt is utd on colonoscop y Migraine 07912271 G43.90 9 pt sees her neurologis t and al is well, migraines well controlled . Patellofem oral stress syndrome 034416199 M22.2X1 M22.2X2 pt to see PT, needs to strengthen quads [id number] Antonia jones MD Main Office [address] [address] 05/02/2019 12:53:09 05/02/2019 13:35:04 Adult health examination 449735075 Z00.00 utd on pap and mammogram, pt is utd on colonoscop y, pt has learning developer appt 09/30 Migraine 14839444 G43.90 9 pt sees her neurologis t and al is well, migraines well controlled . propanolol really helps. Hypercholesterolemia 136 07883 E78.00 check fasting since is post menopausal Chronic constipation 236 106691 K59.09 pt will do miralax 2 times a week and keep on stool softeners. has a rectocoele , avoid getting constipate d [id number] Antonia jones MD Main Office [address] [facility] [address] [facility] [place] [place] [address] 06/11/2020 14:53:32 06/11/2020 15:48:00 Adult health examination 822501885 Z00.00 utd on pap and colonoscop y, mammogram scheduled for Jul 2020, pt is utd on colonoscop y.Resistan ce exercise discussed. Follows CUT OFF SAW GRADER for well womans visit.Due for dental hygienist visit. Migraine 40546565 G43.90 9 pt sees her neurologis t and al is well, migraines well controlled . propanolol really helps. Hyperparathyroidism 6699 9008 E21.3 s/p resection of one gland.-Bernardino l get Vit D and Ca2+, ordered today.-Adv ised patient to take 1000 U on D3 OTC. Bilateral carpal tunnel syndrome 6081710489 1289028 G56.03 Was following neurologis t, has splint and may need injections Hypercholesterolemia 136 66666 E78.00 Diet restrictio n discussed. Will repeat fasting today, ordered today [id number] Antonia jones MD Main Office [address] [place] [address] 09/16/2020 14:46:35 09/16/2020 15:47:21 Hypercholesterolemia 65902464 E78.00 ASCVD risk 2.6%. no meds indicated. diet and exercise Vitamin D deficiency 347 27919 E55.9 will increase to 2000 units a day, level low 30's Hyperparathyroidism 6699 9008 E21.3 hx of parathyroi d surgery in 02/[address] Peters. will refer to endo. normal ionized calcium 09/2020 [id number] Jaylon Westfall PA-C Main Office [address] [facility] 207 [facility] [place] [address] 02/15/2021 14:58:54 02/15/2021 16:25:37 Herpes zoster 6494452 B02.[address] Nichole - very suspicious for shingles - will rx c valtrex, trial c calamine - if no sig improvemen t in 3-5 days then notify us and fill script for steroid cream [id number] Antonia jones MD Main Office [address] [place] [address] 07/16/2021 10:53:33 07/16/2021 11:53:32 Adult health examination 108266424 Z00.00 utd on pap and colonoscop y, mammogram scheduled for Aug 2021,Resis tance exercise discussed. Follows CUT OFF SAW GRADER for well womans visit. Hypercholesterolemia 136 81263 E78.00 ASCVD risk 2.6%. no meds indicated. diet and exercise work on lowering LDL in diet Migraine 69137081 G43.90 9 pt sees her neurologis t and al is well, migraines well controlled . propanolol really helps. History of calculus of kidney 594702258 Z87.442 plan is for pt to see Dr Olivares and get kidney stones treated, she is reluctant, I urged her to make the appt Skin lesion 08287738 L98 .9 pt interested in skin check, she wants to go to [facility], she will make appt [id number] Antonia jones MD Main Office [address] [place] [address] 10/11/2021 11:22:14 10/11/2021 12:21:06 Upper abdominal pain 90880053 R10.10 check labs today, US this week [...] history not consistent with cardiac type pain. [id number] Anthony Burgess MD Main Office [address] [place] [address] 01/05/2022 14:19:28 01/05/2022 15:11:52 Abdominal pain 52930201 R10.9 Probably secondary to chronic constipati on which is not well controlled . Chronic constipation 236 510188 K59.09 May possibly benefit from linzess. She is looking for a referral to GI for further evaluation . [id number] Antonia jones MD Main Office [address] [place] [address] 09/16/2022 10:50:57 09/16/2022 11:31:05 Adult health examination 200249100 Z00.00 utd on pap, mammo and colonoscop y Hyperparathyroidism 6699 9008 E21.3 hx of parathyroi d surgery in 02/[address] Peters. will refer to endo. normal calcium 12/31 [id number] Antonia jones MD Main Office [address] [place] [address] 12/02/2022 09:08:34 12/02/2022 09:56:13 Fatigue 11951021 R53.83 fatigue Right lowe r quadrant pain 349620117 R10.[address] done in 10/03, intermitte nt, very unlikely diverticul itis as pain comes and goes and when not present pt is at baseline without pain, also no diarrhea or GI complaints , will reimage with CT abd and pelvis with contrast to evaluate pain. [id number] Antonia jones MD Telehealt h [address] [place] [address] 01/04/2023 14:34:34 01/04/2023 16:55:49 CT of abdomen abnormal 7311111272 8224492 R93.5 pt saw GI, they ordered an upper GI for February to evaluate caliber of small intestine (CT with some area dilated and some small) Minimal symptoms. [id number] SUHAS PRICE MD Main Office [address] [facility] [place] [address] 11/20/2023 12:49:17 11/20/2023 13:32:46 Adult health examination 570812304 Z00.00 Health Maintenanc e FemaleA) Patient was [...] due, orderedZos ter: orderedPCV 13: due at 34RFVN77: due at 43AQD84:PC V15:COVID: 09/23/2020, 10/21/2020, 07/08/2021 , 07/07/2022 , 08/14/2023 D) Routine blood work orderedE) Updated patient's history RTC in one year for annual exam or sooner if any acute complaints Hypercholesterolemia 136 46572 E78.00 Hyperparathyroidism 6699 9008 E21.3 - s/p removal of parathyroi d in 2019 (surgical indication due to renal stones and osteopenia )- follows with endo, last seen on 11/04- Recent labs showed normal calcium and normal PTH level. Migraine 15132312 G43.90 9 - follows with neurology, last seen on 10/03- currently on propanolol 20mg BID Requires a tetanus booster 253037762 Z28.39 Varicella vaccination 68 381206 Z23 History of calculus of kidney 668892013 Z87.442 - none since 2015- follows with urology, last seen on 04/19/23 Osteopenia 958420566 M85 .80 - following with endo, last seen on 11/04- last bone density was in 2020 -> DUE HIV screening 188713864 Z11.4 Fatigue 06040070 R53.83 Constipation 77404277 K5 9.00 - pt currently on linzess 72 mcg given by GI [id number] Jose Clarke MD Main Office [address] [facility] [place] [address] 02/12/2024 09:09:50 02/12/2024 10:08:29 Calculus of kidney and ureter 545410272 N20.2 see above --- last seen by uro 8.06.03 - rev note - pending get eswl on R === last ct scan a/p 1.16.23, kub 8.2.23, us retroperit oneum 8.2.23 Constipation 42712460 K5 9.00 stable, cont linzess as dir Right side d abdominal pain 267051464 R10.9 most likely d/t , much less likely d/t GIwill get ct a/p c cc: urostrongl y encouraged pt to call uro for f/u visitif pain sig increased then encouraged pt to go to ERrecheck labscont to stay well hydrated [id number] Anthony Burgess MD Main Office [address] [facility] [place] [address] 02/22/2024 14:13:43 02/22/2024 14:42:22 Right sided abdominal pain 074551027 R10.9 -was seen on 02/11; had KUB and labwork-sa w urology on 02/20-KUB revealed kidney stones in the upper right kidney, however urology determined due to location the stones were not causing the symptoms and further evaluate with imaging-sy mptoms of right sided abdominal pain persists; no change in frequency or severity since last visit-no changes in urinary/liu wel habits; no red flag symptoms-w ill further evaluate with right hip xray and US of abdomen [id number] SUHAS PRICE MD Main Office [address] [place] [address] 12/05/2024 13:38:04 12/05/2024 14:09:16 Adult health examination 055769275 Z00.00 Health Maintenanc e FemaleA) Patient was counseled on healthy diet, exercise and nutrition due to BMI of 26.1 B) ScreeningL ast Mammogram: start at age 50 stop at 75Date: 09/23/2024R esult: BIRADS-1Ne xt: 09/2024 Last Pap smear: start at age 21 to age 65Date: 03/01/2024 esults: HPV negative, no atypical cellsNext: 5 years, 02/2029 Last Colonoscop y: start at age 45-75Date: 07/29/2015 Result: internal hemorrhoid sNext: 07/2025 Last DEXA scan:Date: 4R esult: osteopenia Next: 2 years C) Vaccines:I nfluenza: not this yearTdAP: 05/07/2013 -> due, ordered, not performed, remindedZo ster: ordered, not performed, remindedPC V20: orderedCOV ID: 09/23/2020, 10/21/2020, 07/08/2021 , 07/07/2022 , 08/14/2023 D) Routine blood work orderedE) Updated patient's history RTC in one year for annual exam or sooner if any acute complaints Bilateral carpal tunnel syndrome [id number] 4435757 G56.03 - no worsening, currently asymptomat ic History of calculus of kidney 032740500 Z87.442 - follows with urology- recently had a cystoscopy with stent placement and now removal- will have a follow-up to determine what type of stone, will request notes History of parathyroidectomy 0551806643 71187 Z90.89 Hyperparathyroidism 6699 9008 E21.3 - s/p removal of parathyroi d in 2019 (surgical indication due to renal stones and osteopenia )- follows with endo, last seen on 11/04- Recent labs showed normal calcium and normal PTH level -> will recheck levels Migraine 50708074 G43.90 9 - under good control- follows with neurology, last seen on 09/2022- currently on propanolol 20mg BID Osteopenia 186448766 M85 .80 - following with endo, last seen on 11/04/2023- last bone density was in 2023 Vitamin D deficiency 347 24624 E55.9 Fatigue 30256734 R53.83 Z00.00 Hyperlipidemia 96848512 E78.5 Z00.00 - ASCVD score of 4.1%- lipid panel 01/2024: cholestero l-221, triglyceri maritza-144, HDL-55, LDL-140- will recheck levels Pt counselled on:- Eat a heart-heal thy diet - Choose healthy fats. Avoid saturated fats that are found primarily in red meat, arce, sausage, and full-fat dairy products. Advised to choose lean proteins like chicken, turkey, and fish when possible. Switch to low-fat or fat-free dairy. And use monounsatu rated fats like olive and canola oil for cooking. - Cut out the trans fats. Trans fats are found in fried food and processed foods, like cookies, crackers, and other snacks. - Eat more omega-3s. Counseled on eating more fish, including salmon, mackerel, agarwal ,nuts and seeds, like walnuts and flax seeds. - Increase your fiber intake. By eating more oats, brain, fruits, beans, and vegetables , can lower your LDL cholestero l levels. - Eat more fruits and veggies. Irritable bowel syndrome 61565321 K58.9 - constipati on type- c/w linzess 72mcg QD- follows with GI once a year Administra tion of pneumococcal vaccine 15999765 Z23 Health Concerns Section Related Observation LastModified by Organization Detai ls LastModified Time None Recorded Concern Status LastModified by Organization Details LastModified Time None Recorded Advance Directives Directive None Recorded Payers Insurance Date Sequence Insurance Name Policy Number Policy Colunga Covered Member ID Colunga Member ID Guarantor Name 12/18/2024 1 [facility] (PP[facility] [id number] Robson Brown [id number] Robson Brown 04/30/2019 1 [facility] INDEMNITY PLAN - [facility] [id number] Robson Brown [id number] Robson Brown Notes Date Note Type Note Provider Name and Address Organization Details Recorded Time 01/04/2023 text/html Telehealth visit . PT had [...] normal BM's. no weight loss [facility] 01/04/2023 15:45:58 11/20/2023 text/html Caitlyn Brown is [...] and contacts)Diet: regularActivity: none SUHAS PRICE MD [address] [address], [place], [address], [facility] 11/20/2023 13:35:48 02/12/2024 text/html 63 yo F c h/o constipation on linzess and h/o kidney stones presents c 1 wk h/o R sided abd pain.last seen by uro 8.06.03 - rev note - pending get eswl on R === last ct scan a/p 1.16.23, kub 8.2.23, us retroperitoneum 8.2.23rev last gi note - 5.22last colon = next 11.25no straining, brbprno hematuria, dysuria Jaylon Westfall PA-C [address] [facility] [address], [place], [address], [facility] 02/12/2024 10:10:01 02/22/2024 text/html Caitlyn is a [...] taking OTC medications for relief. AVI MAYBERRY [address] [facility] [address], [place], [address], [facility] 02/22/2024 22:59:09 12/05/2024 text/html Caitlyn Brown is a 64 year old F who presented to the clinic for her annual exam. Patient had a cystoscopy for kidney stones on 10/21/2024. Complaints: none Is not using ASA.OTC/Herbal supplements use: does [...] and contacts)Diet: regularActivity: none SUHAS PRICE MD [address] [address], [place], [address], [facility] 12/05/2024 14:18:39 OBGyn Episode No OBEpisode recorded.
--- OUTSIDE RECORDS SUMMARY | 2025-04-01 14:00 | XMS_ITS | Clinical Summary ---
Author Organization [facility] Address [address] [place] [address] Phone Care Team Providers Care Spray Drier Name Role Phone Sherin Thompson MD Primary Care Provider [phone] Allergies No known active allergies Medications propranoloL (INDERAL) 20 mg tablet Take 1 tablet (20 mg total) by mouth 2 times daily. 5 Active oxyBUTYnin (DITROPAN) 5 mg tablet Take 1 tablet (5 mg total) by mouth 3 (three) times a day if needed (spasms) for up to 20 doses. 20 each 5 Active phenazopyridine (Pyridium) 200 mg tablet Take 1 tablet (200 mg total) by mouth 3 (three) times a day if needed (dysuria) for up to 10 doses. 10 tablet 5 Active oxyCODONE (ROXICODONE) 5 mg immediate release tabletIndications :Calculus, kidney Take 1 tablet (5 mg total) by mouth every 6 (six) hours if needed for severe pain for up to 6 doses. Max Daily Amount: 20 mg 6 tablet 5 Active linaCLOtide (Linzess) 72 mcg capsuleIndication s:Slow transit constipation Take 1 capsule (72 mcg total) by mouth 2 (two) times a day. 180 each 3 5 12/13/19 26 Active Surgical History Surgery Date Site/Laterality Comments PARATHYROID GLAND SURGERY SECTION, LOW TRANSVERSE HYSTEROSCOPY ENDOMETRIAL ABLATION LITHOTRIPSY COLONOSCOPY Medical History Medical History Date Comments Osteopenia Chronic kidney disease Constipation Kidney stones Social History Tobacco Use Types Packs/Day Years Used Date Smoking Tobacco: Never Smokeless Tobacco: Never Tobacco Cessation:Counseling Given: Not Answered Alcohol Use Standard Drinks/Week Comments Yes 0 (1 standard drink = 0.6 oz pur e alcohol) rarely Interpersonal Safety Answer Date Record ed Physical Abuse 10/21/2024 Verbal Abuse 10/21/2024 Comments No Sex and Gender Information Value Date Recorded Sex Assigned at Female 10/16/2024 9:16 AM EST Legal Sex Female 5:25 PM EST Gender Identity Female 10/16/2024 9:16 AM EST Sexual Orientation Straight 10/16/2024 9: 16 AM EST Obstetrics History Last Filed Vital Signs Vital Sign Reading Time Taken Comments Blood Pressure 165/69 10/21/2024 11:11 AM EST Pulse 58 10/21/2024 11:11 AM EST Temperature 36.7 C (98.1 F) 10/21/2024 11:11 AM EST Respiratory Rate 18 10/21/2024 11:11 AM EST Oxygen Saturation 100% 10/21/2024 11:11 AM EST Inhaled Oxygen Concentration - - Weight 63.5 kg (140 lb) 12/12/2024 2:19 PM EDT Height 154.9 cm (5' 1 ) 12/12/2024 2:19 PM EDT Body Mass Index 26.45 12/12/2024 2:19 PM EDT Plan of Treatment Health Maintenance Due Date Last Done Comments Breast Cancer Screening 1960 Pneumococcal Vaccine: 50+ Years (1 of 2 - PCV) 1980 Zoster Vaccines (1 of 2) 1980 Cervical Cancer Screening: Pap Smear 1982 DTaP,Tdap,and Td Vaccines (2 - Td or Tdap) 05/07/2023 05/07/2013 Colorectal Cancer Screening: Colonoscopy 10/10/2023 HIV Screening 10/10/2023 Hepatitis C Screening 10/10/2023 Social Influencers of Health Screening 10/10/2023 COVID-19 Vaccine ( season) 2024 08/14/2023, 07/07/2022, 07/08/2021, Additional history exists Depression Screening 09/11/2024 Influenza Vaccine (#1) 2025 RSV Immunization Adult Patients (1 - 1-dose 75+ series) 2036 HIB Vaccines Aged Out No longer eligi ble based on patient's age to complete this topic HPV Vaccines Aged Out No longer eligi ble based on patient's age to complete this topic Hepatitis A Vaccines Aged Out No long er eligible based on patient's age to complete this topic Hepatitis B Vaccines Aged Out No long er eligible based on patient's age to complete this topic IPV Vaccines Aged Out No longer eligi ble based on patient's age to complete this topic MMR Vaccines Aged Out No longer eligi ble based on patient's age to complete this topic Meningococcal ACWY Vaccine Aged Out N o longer eligible based on patient's age to complete this topic Meningococcal B Vaccine Aged Out No l onger eligible based on patient's age to complete this topic RSV Immunization Patients Under 20 months Aged Out No longer eligible based on patient's age to complete this topic Varicella Vaccines Aged Out No longer eligible based on patient's age to complete this topic Medical Devices Implanted Type Area Kick Press Operator Device Identifier Shelf Expiration Date Model / Serial / Lot Stent Uret [id number] Contr P[employer] - Sn/A - [id number] Implanted:Qty: 1 on 10/21/2024 by Gala Coates MD at [facility] Stents Right: Ureter [employer] [facility] 07/17/2027 [id number] / N/A / [id number] Insurance [employer] Care Teams Spray Drier Relationship Specialty [place] [address] [place] [id number] PCP - General Internal Medicine 10/16/24
--- OUTSIDE RECORDS SUMMARY | 2025-04-01 14:00 | XMS_ITS | Clinical Summary ---
Author Organization [facility] Address [address] [address] Phone Care Team Providers Care Director Of Research Name Role Phone Sherin Thompson MD Primary Care Provider [phone] Allergies No known active allergies Medications propranoloL (INDERAL) 20 MG immediate release tablet Take 1 tablet by mouth 2 (two) times a day. 09/25/2023 Active LINZESS 72 mcg capsule Take 1 capsule by mouth every morning. 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 Workup found primary hyperparathyroidism and she had parathyroidectomy in 02/2020. Her DEXA in 08/2021 showed stable osteopenia. No fragility fractures. Last DEXA on 09/28/2023 showed continued osteopenia at the hip and spine without significant change within the last 2 years. 10-year calculated fracture risk by FRAX is 0.7% / 8.3% for hip/major osteoporotic fracture. This is not high enough to warrant antiresorptive treatment. Encourage patient to restart regular weightbearing exercises. Increase dietary calcium intake with a goal of 1200 mg daily. Add 400 IU D3 daily. Will get back to her after DEXA report reviewed. Repeat DEXA in 2 years Vitamin D deficiency, unspecified 11/04/2023 Assessment & Plan (11/04/2023 6:23 PM EST): Her vitamin D level was normal in 08/2022 while taking 1000 IU D3 daily. Patient decided to stop her supplement because of concerns about her persistent asymptomatic kidney stones. Her vitamin D level was low at 19.9 in 09/2023 while not on supplement. Suggested to add at least 400 IU D3 daily. Monitor. History of parathyroidectomy 11/04/2023 Assessment & Plan (11/04/2023 6:26 PM EST): Status post left superior 500 mg parathyroid adenoma removal in 02/2020. Surgical indications bilateral kidney stones and osteopenia. Recent labs showed normal calcium and normal PTH level. Social History Tobacco Use Types Packs/Day Years Used Date Smoking Tobacco: Never Assessed Education Answer Date Recorded Are you interested in more education? Not on rishi e 05/26/2023 Are you concerned about learning? Not on file 05/26/2023 No 05/26/2023 No 05/26/2023 Digital Access Answer Date Recorded No 05/26/2023 No 05/26/2023 Reliable internet access at home? Not on file 05/26/2023 Device with a working camera? Not on file Comments Unknown Sex and Gender Information Value Date Recorded Sex Assigned at Not on file Legal Sex Female 9:51 AM EDT Gender Identity Not on file Sexual Orientation Not on file Last Filed Vital Signs Vital Sign Reading Time Taken Comments Blood Pressure 124/64 10/11/2023 2:53 PM EST Pulse 78 10/11/2023 2:53 PM EST Temperature 36.9 C (98.4 F) 10/11/2023 2:53 PM EST Respiratory Rate - - Oxygen Saturation 97% 10/11/2023 2:53 PM EST Inhaled Oxygen Concentration - - Weight 64.9 kg (143 lb) 10/11/2023 2:53 PM EST Height 154.9 cm (5' 1 ) 10/11/2023 2:53 PM EST Body Mass Index 27.02 10/11/2023 2:53 PM EST Plan of Treatment Health Maintenance Due Date Last Done Comments Adult Td,Tdap Booster 1961 LIPID PANEL 1961 DEPRESSION SCREENING 1973 SMOKING Hx and SMOKELESS TOB ACCO SCREENING 1974 HEPATITIS C SCREENING 1979 HIV ONE-TIME SCREENING (18-6 5 YEARS) 1979 PAP SMEAR 1982 SCREENING FOR DIABETES 1996 MAMMOGRAM 2001 COLOGUARD 2006 COLONOSCOPY 2006 COLORECTAL CANCER SCREENING 2006 FIT TEST 2006 FOBT 2006 SIGMOIDOSCOPY 2006 VIRTUAL COLONOSCOPY 2006 PNEUMOCOCCAL VACCINES (50+ y ears) (1 of 1 - PCV) 2011 ZOSTER VACCINES (1 of 2) 2011 COVID-19 VACCINE (1 - 2023-2 5 season) 2024 RSV VACCINE (1 - 1-dose 75+ series) 2036 HEPATITIS A VACCINES Aged Out No long er eligible based on patient's age to complete this topic HIB VACCINES Aged Out No longer eligi ble based on patient's age to complete this topic MENINGOCOCCAL VACCINES (ACWY) Aged Out No longer eligible based on patient's age to complete this topic MENINGOCOCCAL VACCINES (B) Aged Out N o longer eligible based on patient's age to complete this topic Medical Devices Not on file Insurance [facility] CHO[facility] [employer] Care Teams Director Of Research Relationship Specialty Start Date End Date Sherin Thompson MD [address] [phone] PCP - General Family Medicine 05/26/23 Additional Source Comments The information contained in this document represents components of the legal health record. It is not the complete legal health record.[facility]
--- OUTSIDE RECORDS SUMMARY | 2025-04-01 14:00 | XMS_ITS | Continuity of Care Document ---
Author Organization [facility] Address [address] [place] [address] Phone [phone] Social History Type Date Description Comments Sex Female Sex Unknown Medical Devices Description No Information Available Encounters Description No Information Available Assessments Description No Information Available Plan of Treatment No Information Available Functional Status Description No Information Available Mental Status Description No Information Available Referrals Description No Information Available
== END 2025-04-01 13:10 | disposition home or self-care (01) ==
LOC: HO.HSM 12:58
PROVIDERS: PCP Student in an Organized Health Care Education/Training Program; Referring Provider Student in an Organized Health Care Education/Training Program; Visit Provider Registered Nurse
DX: G43.109 Migraine with aura, not intractable, without status migrainosus (principal); G56.03 Carpal tunnel syndrome, bilateral upper limbs; M50.90 Cervical disc disorder, unspecified, unspecified cervical region; M51.9 Unspecified thoracic, thoracolumbar and lumbosacral intervertebral disc disorder
CPT/HCPCS: 99214

== ENCOUNTER 2025-05-20 14:17 | Outpatient (AMB) | payer OTHER, SELFPAY ==
--- NOTE | 2025-05-20 14:29 | A.OFFVIS_ITS ---
Vital Signs 05/20/25 14:47 BP 137/76 Position Sitting Pulse 76 Intake Visit Reasons: On going headache pain behind eyes Allergies No Known Allergies Allergy (Verified 05/20/25 14:31) Medication List - Last Reconciled 05/20/25 by Lashae Medina CNP cholecalciferol (vitamin D3) 50 mcg PO DAILY linaclotide (Linzess) 72 mcg PO BID propranolol 20 mg PO BID HPI Comments Details: She had increase in headaches in 04/2025 along with left eye pain. She had eye exam and was prescribed prednisolone eye drops. Headaches were better now and not happening as often. She had few occasional headaches, mostly frontal, dull to throbbing-type pain. Motrin as needed helped some. No specific triggers. Sleep was okay. Headaches were controlled with propranolol. Neck pain and low back pain has also been okay. Doing some exercises. No falls. Hand symptoms improved with braces, but will occasionally have some numbness. Sleep was okay. She has migraines with and without aura and mild carpal tunnel syndrome. The migraines have been well controlled. Carpal tunnel syndrome has been stable. She has elements of anxiety which has not been a big problem. In the past, used heat patch when LBP acted up. Hip pain resolved. Neck pain, stiffness, and headaches have improved. [facility] Medical History (Updated 04/01/25 @ 13:04 by Lashae Medina CNP) Carpal tunnel syndrome, bilateral upper limbs Carpal tunnel syndrome Cervical disc disease Migraine headache with aura Calculus of kidney Review of Systems Const Denies chills, Denies daytime sleepiness, Denies difficulty sleeping, Denies fatigue, Denies fever(s), Denies frequent falls, Reports headache(s), Denies increased appetite, Denies poor appetite, Denies snoring, Denies weakness, Denies weight gain and Denies weight loss Eyes Denies loss of vision ENT Denies vertigo, Denies dizziness, Reports headache(s) and Reports neck pain Card Denies chest pain at rest, Denies chest pain with activity, Denies syncope, Denies leg edema, Denies palpitations, Denies dyspnea and Denies dyspnea on exertion Resp Denies cough, Denies dyspnea, Denies dyspnea on exertion and Denies snoring GI Denies abdominal pain, Denies constipation, Denies heartburn, Denies diarrhea and Denies nausea Denies urinary frequency, Denies urinary incontinence and Denies urinary urgency Musc Denies abnormal gait, Reports back pain, Denies myalgias, Denies arthralgias, Reports neck pain, Reports numbness and Reports tingling Neuro Denies abnormal gait, Denies vertigo, Denies dizziness, Denies syncope, Denies frequent falls, Reports headache(s), Denies lack of coordination, Denies loss of vision, Denies memory loss, Reports numbness, Denies Other visual disturbances, Denies restless legs, Denies seizure-like activity, Reports tingling, Denies paresthesias, Denies tremor(s) and Denies weakness Psych Denies anxiety, Denies depression, Denies auditory hallucinations, Denies memory loss and Denies visual hallucinations Endo Denies fatigue and Denies palpitations Physical Exam Const Other: General Appearance:? normal, in no acute distress. Heart:? S1, S2 normal, no murmurs. Lungs:? clear anteriorly and posteriorly. Musculoskeletal:? normal. Extremities:? no edema. Psych:? alert, oriented, cognitive function intact, cooperative with exam. Neuro Other: Abnormal Neurological Findings:?none.? Mental Status: alert and oriented X 3. Normal attention, orientation, memory, and affect. Cranial Nerves: Pupils are equal, round, and reactive to light. External ocular muscles are intact. Visual thornton are full, no ptosis. Face is symmetrical, no facial weakness or droop. Facial sensations are normal. Tongue protrudes in midline. Palate elevates symmetrically. Shoulder shrugging is normal Motor Examination: Normal muscle tone, bulk and strength. No atrophy or fasciculations. No drift of the extended upper extremities. DTR 2+. Plantars are flexor. Sensory Exam: Normal light touch, temperature, pinprick, vibration, and joint- position sensations. Rhomberg sign is absent. Coordination: No ataxia. No titubation. Gait Exam: Within normal limits. Cerebellar Signs: Ldacmn-pv-pzye and dkhp-pl-agux is normal. No dysdiadochokinesia. Extrapyramidal System: No tremor, rigidity with normal facial expressions. No bradykinesia. No bradyphrenia. Normal arm swing and posture. No propulsion or retropulsion. Speech: Normal. Assessment & Plan Assessment & Plan (1) Migraine headache with aura: Code(s): G43.109 - Migraine with aura, not intractable, without status migrainosus Category: Medical Qualifiers: Status migrainosus presence: without status migrainosus Intractability: not intractable Qualified Code(s): G43.109 - Migraine with aura, not intractable, without status migrainosus Plan: Treatment options reviewed, including trying increased dose of propranolol, declining at this time. Continue propranolol 20mg 1 tablet twice a day. Start [id number]-Gamt 50-325-40mg 1 tablet as needed q8h for headaches, use/side effects reviewed. (2) Carpal tunnel syndrome, bilateral upper limbs: Code(s): G56.03 - Carpal tunnel syndrome, bilateral upper limbs Category: Medical (3) Cervical disc disease: Code(s): M50.90 - Cervical disc disorder, unspecified, unspecified cervical region Category: Medical (4) Lumbar disc disease: Code(s): M51.9 - Unspecified thoracic, thoracolumbar and lumbosacral intervertebral disc disorder Category: Medical Plan Meds tried: propranolol Medications: New dwafpyqwzj-zpyohwtbrxvjs-jjfc 50-325-40 mg 1 tab PO Q8H 10 tabs 2RF headache 30 days Coding Level of Care Code Est Pt Level 4 (65420) Diagnoses Migraine with aura and without status migrainosus, not intractable G43.109 Status migrainosus presence: without status migrainosus Intractability: not intractable Carpal tunnel syndrome, bilateral upper limbs G56.03 Cervical disc disease M50.90 Lumbar disc disease M51.9
[2025-05-20 14:47] VITALS: BP 137/76; PULSE 76
--- OUTSIDE RECORDS SUMMARY | 2025-05-20 16:51 | XMS_ITS | Clinical Summary ---
Author Organization [facility] Address [address] [address] Phone Care Team Providers Care Clinical Business Analyst Name Role Phone Sherin Thompson MD Primary Care Provider [phone] Allergies No known active allergies Medications propranoloL [...] 2011 ZOSTER VACCINES (1 of 2) 2011 INFLUENZA VACCINE (#1) 2025 COVID-19 VACCINE (1 - 2023-2 5 season) 2025 RSV VACCINE (1 - 1-dose 75+ series) [...] topic Medical Devices Not on file Insurance [facility] CHO[facility] JAIMIE COHN [id number] CHOICE CHOICE Care Teams Clinical Business Analyst Relationship Specialty Start Date End Date Sherin Thompson MD [address] [phone] PCP - General Family Medicine 9/15/23 Additional Source Comments The information contained in this document represents components of the legal health record. It is not the complete legal health record.[facility]
--- OUTSIDE RECORDS SUMMARY | 2025-05-20 16:51 | XMS_ITS | Continuity of Care Document ---
Author Organization [facility] Address [address] [place] [address] Phone [phone] Social History Type Date Description Comments Sex Female Sex Unknown Medical Devices Description No Information Available Encounters Description No Information Available Assessments Description No Information Available Plan of Treatment No Information Available Functional Status Description No Information Available Mental Status Description No Information Available Referrals Description No Information Available
--- OUTSIDE RECORDS SUMMARY | 2025-05-20 16:51 | XMS_ITS | Clinical Summary ---
Author Organization [facility] Address [address] [place] [address] Phone Care Team Providers Care Corporate Securities Research Analyst Name Role Phone Sherin Thompson MD Primary Care Provider [phone] Allergies No known active allergies Medications propranoloL [...] Last Done Comments Breast Cancer Screening 1961 Zoster Vaccines (1 of 2) 1980 Cervical Cancer Screening: Pap Smear 1982 Pneumococcal Vaccine: 50+ Years (1 of 1 - PCV) 2011 DTaP,Tdap,and Td Vaccines (2 - Td or Tdap) 05/07/2023 05/07/2013 Colorectal Cancer Screening: Colonoscopy 10/10/2023 HIV Screening 10/10/2023 Hepatitis C Screening 10/10/2023 Social Influencers of Health Screening 10/10/2023 Depression Screening 09/11/2024 COVID-19 Vaccine ( season) 2025 08/14/2023, 07/07/2022, 07/08/2021, Additional history exists Influenza Vaccine (#1) 2025 RSV Immunization Adult [...] this topic Medical Devices Implanted Type Area Renewals Manager Device Identifier Shelf Expiration Date Model / Serial / Lot Stent Uret [id number] Contr Percuflex [employer] - Sn/A - [id number] Implanted:Qty: 1 on 10/21/2024 by Gala Coates MD at [facility] Stents Right: [employer] [facility] Y 07/17/2027 [id number] / N/A / [id number] Insurance [employer] Care Teams Corporate Securities Research Analyst Relationship Specialty [place] [address] [place] [phone] PCP - General Internal Medicine 10/16/24
== END 2025-05-20 15:19 | disposition home or self-care (01) ==
LOC: HO.HSM 14:17
PROVIDERS: PCP Student in an Organized Health Care Education/Training Program; Visit Provider Registered Nurse
DX: G43.109 Migraine with aura, not intractable, without status migrainosus (principal); G56.03 Carpal tunnel syndrome, bilateral upper limbs; M50.90 Cervical disc disorder, unspecified, unspecified cervical region; M51.9 Unspecified thoracic, thoracolumbar and lumbosacral intervertebral disc disorder
CPT/HCPCS: 99214